=== PATIENT | male | born 1955 | race Caucasian/White ===

== ENCOUNTER 2023-03-25 16:12 | Inpatient (IN) | payer MEDICARE, OTHER ==
[~2023-03-25] VITALS: Ht 165.1 cm; Wt 61.2 kg
[2023-03-25] MEDS ORDERED: LINA290C PO (16:59)
[2023-03-25] MEDS ORDERED: BUPR-54 PO (16:59)
[2023-03-25] MEDS ORDERED: MULT-1201 PO (16:59)
[2023-03-25] MEDS ORDERED: MIRT-121 PO (16:59)
[2023-03-25] MEDS ORDERED: OLAN20TA3 PO (16:59)
[2023-03-25] MEDS ORDERED: LACT1CAP73 PO (16:59)
[2023-03-25] MEDS ORDERED: CHOL200059 PO (16:59)
[2023-03-25] MEDS ORDERED: VIT1CAPS9 PO (16:59)
[2023-03-25] MEDS ORDERED: LORA-258 PO (16:59)
[2023-03-25] MEDS ORDERED: SERT50TA PO (16:59)
[2023-03-25] MEDS ORDERED: MIDO5TAB4 PO (16:59)
[2023-03-25 17:54] VITALS: BP 136/69; TEMP 98.7; O2SAT 96
[2023-03-25] MEDS ORDERED: MIDODRINE HCL (5MG) 5 MG TABLET PO PRN (18:30)
[2023-03-25 19:07] LABS: BASOPHILS % (AUTO) 0.5 % (0.0-2.0); HEMATOCRIT 39 % (39-51); LYMPHOCYTES # (AUTO) 0.7 K/uL (0.8-4.8); MEAN CORPUSCULAR HEMOGLOBIN 30 PG (26.0-33.0); MEAN CORPUSCULAR HGB CONC 33 g/dl (31.0-36.0); MEAN CORPUSCULAR VOLUME 91 fL (80-96); MONOCYTES # (AUTO) 0.5 K/uL (0.1-1.30); MONOCYTES % (AUTO) 6.8 % (2.0-12.0); NEUTROPHILS # (AUTO) 5.5 K/uL (1.8-8.9); NEUTROPHILS % (AUTO) 81.7 % (43.0-81.0); PLATELET COUNT (AUTO) 167 K/uL (150-450); RED CELL DISTRIBUTION WIDTH 13.6 % (11.5-15.0); WHITE BLOOD COUNT (AUTO) 6.8 K/uL (4.3-11.0)
[2023-03-25 19:26] LABS: CALCIUM, SERUM 10.2 mg/dL (8.5-10.1); CREATININE 0.8 mg/dL (0.6-1.3); POTASSIUM 3.5 mmol/L (3.5-5.1)
[2023-03-25 19:31] LABS: BILIRUBIN,TOTAL 0.8 mg/dL (0.2-1.0)
[2023-03-25 19:48] LABS: LACTIC ACID 1.6 mmol/L (0.4-2.0)
[2023-03-25] MEDS ORDERED: MAGNESIUM HYDROXIDE 30 ML UDC PO PRN (20:00)
[2023-03-25] MEDS ORDERED: ACETAMINOPHEN 325 MG TABLET PO PRN (20:00)
[2023-03-25] MEDS ORDERED: ZOLPIDEM TARTRATE 5 MG TABLET PO PRN (20:00)
[2023-03-25] MEDS ORDERED: BLOOD SUGAR DIAGNOSTIC 1 EACH STRIP IN ONE (20:00)
[2023-03-25] MEDS ORDERED: LORAZEPAM 0.5 MG TABLET PO PRN (20:00)
[2023-03-25] MEDS ORDERED: MAG HYDROX/AL HYDROX/SIMETH 30 ML UDC PO PRN (20:00)
[2023-03-25 20:36] VITALS: BP 126/100; TEMP 100.9; O2SAT 94
[2023-03-26 08:00] VITALS: BP 118/59; TEMP 98.1; O2SAT 92
[2023-03-26] MEDS: DOCUSATE SODIUM 100 MG CAPSULE PO SCH ×2 (08:14→16:16)
[2023-03-26] MEDS ORDERED: POLYETHYLENE GLYCOL 3350 17 GM POWD.PACK PO SCH (09:00)
[2023-03-26] MEDS ORDERED: LORAZEPAM 0.5 MG TABLET PO PRN (10:30)
[2023-03-26] MEDS ORDERED: OLANZAPINE ZYDIS 5 MG TAB.RAPDIS PO SCH (10:30)
[2023-03-26] MEDS ORDERED: LORAZEPAM 1 MG TABLET PO PRN (11:00)
[2023-03-26] MEDS: ENSURE ENLIVE CHOC 237 ML CAN PO SCH ×2 (11:51→16:16)
[2023-03-26 15:13] LABS: CREATININE 0.8 mg/dL (0.6-1.3)
[2023-03-26 16:00] VITALS: BP 113/56; TEMP 97.9; O2SAT 96
[2023-03-26 20:35] VITALS: BP 130/68; TEMP 98.6; O2SAT 97
[2023-03-27] MEDS ORDERED: BUPROPION XL 150 MG TAB.ER.24 PO SCH (09:00)
== END 2023-03-26 20:20 | disposition short-term general hospital (02) | DRG 885 ==
LOC: GPS 16:12
PROVIDERS: ADMIT Psychiatry & Neurology Psychiatry; ATTEND Internal Medicine
DX: F33.3 Major depressive disorder, recurrent, severe with psychotic symptoms (principal); F29 Unspecified psychosis not due to a substance or known physiological condition; Z73.6 Limitation of activities due to disability; G31.84 Mild cognitive impairment of uncertain or unknown etiology; R62.7 Adult failure to thrive; F41.9 Anxiety disorder, unspecified
CPT/HCPCS: 36415; 76770-TC; 80053-TC; 80061-TC; 82565-TC; 83605-TC; 85025-TC; 87040-TC; 97110-TC; 97112-TC; 97530-TC; 97535-TC

== ENCOUNTER 2023-03-26 20:47 | Inpatient (IN) | payer MEDICARE, OTHER ==
[~2023-03-26] VITALS: Ht 170.2 cm; Wt 59.0 kg
[~2023-03-26 20:47] MED LIST: BUPR-54 PO; CHOL200059 PO; LACT1CAP73 PO; LINA290C PO; LORA-258 PO; MIDO5TAB4 PO; MIRT-121 PO; MULT-1201 PO; OLAN20TA3 PO; SERT50TA PO; VIT1CAPS9 PO
[2023-03-26 21:00] VITALS: BP 114/56; TEMP 97; O2SAT 98
[2023-03-26] MEDS ORDERED: ONDANSETRON HCL/PF 4 MG/2 ML VIAL IVP PRN (21:30)
[2023-03-26] MEDS ORDERED: MIDODRINE HCL (5MG) 5 MG TABLET PO PRN (21:30)
[2023-03-26] MEDS ORDERED: ZOLPIDEM TARTRATE 10 MG TABLET PO PRN (21:30)
[2023-03-26] MEDS ORDERED: MAGNESIUM HYDROXIDE 30 ML UDC PO PRN (21:30)
[2023-03-26] MEDS ORDERED: MAG HYDROX/AL HYDROX/SIMETH 30 ML UDC PO PRN (21:30)
[2023-03-26] MEDS ORDERED: ACETAMINOPHEN 325 MG TABLET PO PRN ×2 (21:30)
[2023-03-26] MEDS ORDERED: LORAZEPAM 1 MG TABLET PO PRN (21:30)
[2023-03-26] MEDS ORDERED: OLANZAPINE 10 MG TABLET PO SCH (22:00)
[2023-03-26] MEDS ORDERED: MIRTAZAPINE 15 MG TABLET PO SCH (22:00)
[2023-03-26] MEDS: IV D5/ 0.9% NACL 1,000 ML IV PRN (22:07)
[2023-03-27 06:00] VITALS: BP 125/62; TEMP 98.2
[2023-03-27 07:11] LABS: BASOPHILS # (AUTO) 0.1 K/uL (0.0-0.2); BASOPHILS % (AUTO) 0.9 % (0.0-2.0); EOSINOPHILS # (AUTO) 0.1 K/uL (0.0-0.7); HEMATOCRIT 37 % (39-51); HEMOGLOBIN 12.4 g/dL (13.5-17.5); LYMPHOCYTES # (AUTO) 1.1 K/uL (0.8-4.8); MEAN CORPUSCULAR HEMOGLOBIN 30 PG (26.0-33.0); MEAN CORPUSCULAR HGB CONC 33 g/dl (31.0-36.0); MEAN CORPUSCULAR VOLUME 90 fL (80-96); MONOCYTES # (AUTO) 0.5 K/uL (0.1-1.30); MONOCYTES % (AUTO) 8.1 % (2.0-12.0); NEUTROPHILS # (AUTO) 4.6 K/uL (1.8-8.9); PLATELET COUNT (AUTO) 195 K/uL (150-450); RED BLOOD CELL COUNT(AUTO) 4.13 MIL/uL (4.5-6.0); WHITE BLOOD COUNT (AUTO) 6.3 K/uL (4.3-11.0)
[2023-03-27 07:36] LABS: CREATININE 0.8 mg/dL (0.6-1.3); MAGNESIUM 2.1 mg/dL (1.8-2.4); PHOSPHORUS 2.2 mg/dL (2.5-4.9); POTASSIUM 3.5 mmol/L (3.5-5.1)
[2023-03-27] MEDS: ENSURE ENLIVE CHOC 237 ML CAN PO SCH ×4 (08:00→16:47)
[2023-03-27] MEDS: MULTIPLE VIT (LYCOPENE/FA/MV,CA,IRON,MIN/LUT)1 TAB PO SCH ×2 (08:07→08:58)
[2023-03-27] MEDS: BUPROPION XL 150 MG TAB.ER.24 PO SCH ×2 (08:07→08:59)
[2023-03-27] MEDS: LACTOBACILLUS RHAMNOSUS GG 1 EACH CAP.SPRINK PO SCH ×3 (08:07→16:47)
[2023-03-27] MEDS: DOCUSATE SODIUM 100 MG CAPSULE PO SCH ×3 (08:07→16:47)
[2023-03-27] MEDS: OLANZAPINE 5 MG TABLET PO SCH ×2 (08:07→08:59)
[2023-03-27] MEDS: LORAZEPAM 0.5 MG TABLET PO SCH ×2 (08:07→08:58)
[2023-03-27] MEDS: CHOLECALCIFEROL (VITAMIN D 3) 400 UNIT TABLET PO SCH ×2 (08:07→08:59)
[2023-03-27] MEDS: POLYETHYLENE GLYCOL 3350 17 GM POWD.PACK PO SCH ×2 (08:08→08:59)
[2023-03-27] MEDS: MIDODRINE HCL (5MG) 5 MG TABLET PO SCH ×2 (08:50→16:48)
[2023-03-27] MEDS ORDERED: BUPROPION XL 150 MG TAB.ER.24 PO SCH (09:00)
[2023-03-27] MEDS ORDERED: SERTRALINE HCL 50 MG TABLET PO SCH ×2 (09:00)
[2023-03-27] MEDS: ENOXAPARIN SODIUM 40 MG/0.4 ML DISP.SYRIN SQ SCH (09:43)
[2023-03-27] MEDS: OLANZAPINE 10 MG VIAL IM SCH ×2 (11:21→16:47)
[2023-03-27] MEDS: IV D5/ 0.9% NACL 1,000 ML IV PRN (11:30)
[2023-03-27] MEDS ORDERED: K PHOS NEUTRAL 250 MG TABLET PO ONE (15:30)
[2023-03-27 20:00] VITALS: BP 139/75; TEMP 97; O2SAT 99
[2023-03-27] MEDS ORDERED: OLANZAPINE 10 MG TABLET GT SCH (20:42)
[2023-03-27] MEDS ORDERED: LORAZEPAM 1 MG TABLET GT PRN (20:43)
[2023-03-27] MEDS ORDERED: MAG HYDROX/AL HYDROX/SIMETH 30 ML UDC GT PRN (20:43)
[2023-03-27] MEDS ORDERED: MAGNESIUM HYDROXIDE 30 ML UDC GT PRN (20:43)
[2023-03-27] MEDS ORDERED: ZOLPIDEM TARTRATE 10 MG TABLET GT PRN (20:43)
[2023-03-27] MEDS ORDERED: MIDODRINE HCL (5MG) 5 MG TABLET GT PRN (20:44)
[2023-03-27] MEDS ORDERED: NEUTRA PHOS 1 POWD.PACKET NG ONE (21:00)
[2023-03-27] MEDS ORDERED: NEUTRA PHOS 1 POWD.PACKET GT ONE (21:00)
[2023-03-27] MEDS ORDERED: TWOCAL HN 1,000 ML LIQUID GT PRN (21:00)
[2023-03-27] MEDS ORDERED: NEUTRA PHOS 1 POWD.PACKET PO ONE (21:00)
[2023-03-27] MEDS ORDERED: MIRTAZAPINE 15 MG TABLET PO SCH (22:00)
[2023-03-27] MEDS ORDERED: OLANZAPINE 10 MG TABLET PO SCH (22:00)
[2023-03-28] MEDS: IV D5/ 0.9% NACL 1,000 ML IV PRN (01:15)
[2023-03-28 04:00] VITALS: BP 105/65; TEMP 98.1; O2SAT 97
[2023-03-28] MEDS ORDERED: NEUTRA PHOS 1 POWD.PACKET NG ONE (08:00)
[2023-03-28] MEDS: BUPROPION XL 150 MG TAB.ER.24 PO SCH (08:05)
[2023-03-28] MEDS: POLYETHYLENE GLYCOL 3350 17 GM POWD.PACK GT SCH (08:06)
[2023-03-28] MEDS: CHOLECALCIFEROL (VITAMIN D 3) 400 UNIT TABLET GT SCH (08:06)
[2023-03-28] MEDS: MULTIPLE VIT (LYCOPENE/FA/MV,CA,IRON,MIN/LUT)1 TAB GT SCH (08:06)
[2023-03-28] MEDS: LORAZEPAM 0.5 MG TABLET GT SCH (08:06)
[2023-03-28] MEDS: DOCUSATE SODIUM LIQ 100 MG/10 ML UDC GT SCH ×2 (08:07→16:33)
[2023-03-28] MEDS: LACTOBACILLUS RHAMNOSUS GG 1 EACH CAP.SPRINK GT SCH ×2 (08:07→16:33)
[2023-03-28] MEDS: MIDODRINE HCL (5MG) 5 MG TABLET GT SCH ×2 (08:08→16:37)
[2023-03-28] MEDS: ENOXAPARIN SODIUM 40 MG/0.4 ML DISP.SYRIN SQ SCH (08:09)
[2023-03-28] MEDS: ENSURE ENLIVE CHOC 237 ML CAN PO SCH (08:09)
[2023-03-28] MEDS: OLANZAPINE 10 MG VIAL IM SCH (08:24)
[2023-03-28] MEDS: JEVITY 1.2 CAL 1,000 ML BOTTLE GT PRN (11:01)
[2023-03-28] MEDS: OLANZAPINE 10 MG TABLET GT SCH ×2 (14:27→16:33)
[2023-03-29] MEDS: IV D5/ 0.9% NACL 1,000 ML IV PRN ×2 (01:14→11:34)
[2023-03-29] MEDS: JEVITY 1.2 CAL 1,000 ML BOTTLE GT PRN (05:40)
[2023-03-29 05:55] LABS: BASOPHILS # (AUTO) 0.1 K/uL (0.0-0.2); BASOPHILS % (AUTO) 0.9 % (0.0-2.0); EOSINOPHILS % (AUTO) 0.6 % (0.0-6.0); HEMATOCRIT 35 % (39-51); HEMOGLOBIN 11.6 g/dL (13.5-17.5); LYMPHOCYTES % (AUTO) 14.1 % (20.0-44.0); MEAN CORPUSCULAR HEMOGLOBIN 30 PG (26.0-33.0); MEAN CORPUSCULAR HGB CONC 33 g/dl (31.0-36.0); MEAN CORPUSCULAR VOLUME 90 fL (80-96); MONOCYTES # (AUTO) 0.8 K/uL (0.1-1.30); MONOCYTES % (AUTO) 11.3 % (2.0-12.0); NEUTROPHILS # (AUTO) 5.2 K/uL (1.8-8.9); NEUTROPHILS % (AUTO) 73.1 % (43.0-81.0); PLATELET COUNT (AUTO) 237 K/uL (150-450); RED CELL DISTRIBUTION WIDTH 13.3 % (11.5-15.0); WHITE BLOOD COUNT (AUTO) 7.2 K/uL (4.3-11.0)
[2023-03-29 06:28] LABS: CREATININE 0.8 mg/dL (0.6-1.3); PHOSPHORUS 2.8 mg/dL (2.5-4.9); POTASSIUM 3.3 mmol/L (3.5-5.1)
[2023-03-29 08:00] VITALS: BP 107/61; TEMP 98.6; O2SAT 96
[2023-03-29] MEDS: LORAZEPAM 0.5 MG TABLET GT SCH (09:00)
[2023-03-29] MEDS: ENOXAPARIN SODIUM 40 MG/0.4 ML DISP.SYRIN SQ SCH ×2 (09:00→09:12)
[2023-03-29] MEDS: BUPROPION XL 150 MG TAB.ER.24 PO SCH (09:02)
[2023-03-29] MEDS: CHOLECALCIFEROL (VITAMIN D 3) 400 UNIT TABLET GT SCH (09:02)
[2023-03-29] MEDS: DOCUSATE SODIUM LIQ 100 MG/10 ML UDC GT SCH ×2 (09:02→17:22)
[2023-03-29] MEDS: OLANZAPINE 10 MG TABLET GT SCH ×3 (09:02→17:22)
[2023-03-29] MEDS: LACTOBACILLUS RHAMNOSUS GG 1 EACH CAP.SPRINK GT SCH ×2 (09:02→17:22)
[2023-03-29] MEDS: MULTIPLE VIT (LYCOPENE/FA/MV,CA,IRON,MIN/LUT)1 TAB GT SCH (09:02)
[2023-03-29] MEDS: MIDODRINE HCL (5MG) 5 MG TABLET GT SCH ×2 (09:03→17:22)
[2023-03-29] MEDS: POLYETHYLENE GLYCOL 3350 17 GM POWD.PACK GT SCH (09:03)
[2023-03-29] MEDS ORDERED: POTASSIUM CHLORIDE 20 MEQ POWDER PACKET NG SCH (10:30)
[2023-03-29 11:33] VITALS: BP 125/80; TEMP 98.9; O2SAT 96
[2023-03-29 15:51] LABS: APPEARANCE,URINE CLOUDY (CLEAR); BILIRUBIN,URINE NEGATIVE (NEGATIVE); BLOOD, URINE 1+ Ery/uL (NEGATIVE); COLOR,URINE YELLOW (YELLOW); KETONES,URINE TRACE mg/dL (NEGATIVE); LEUKOCYTE ESTERASE ,URINE NEGATIVE (NEGATIVE); NITRITE, URINE POSITIVE (NEGATIVE); PROTEIN,URINE NEGATIVE (NEGATIVE); UGLUCOSE NEGATIVE (NEGATIVE); UROBILINOGEN,URINE >=8.0 EU/dL (0.2)
[2023-03-29 16:00] VITALS: BP 122/69; TEMP 99; TEMP 99.1; O2SAT 94
[2023-03-29 16:10] LABS: ADD URINE CULTURE YES; BACTERIA,URINE 1+ /HPF (None Seen); RBC,URINE 0-2 /HPF (0-2); WBC,URINE NONE SEEN /HPF (0-3)
[2023-03-29 16:11] LABS: SQUAMOUS EPITHELIAL CELL,UR Few /HPF (None Seen); URINE AMORPHOUS URATE Moderate /HPF (None Seen)
[2023-03-29] MEDS ORDERED: CEFTRIAXONE 1 G VIAL IM SCH (16:30)
[2023-03-29] MEDS: ACETAMINOPHEN 650 MG/20.3 ML UDC GT PRN (17:22)
[2023-03-29 17:41] VITALS: TEMP 101.3
[2023-03-29] MEDS ORDERED: diphenhydrAMINE HCL 25 MG CAPSULE PO PRN (18:00)
[2023-03-29] MEDS: CEFTRIAXONE 1 G in IV D5W 50 ML IV SCH (18:05)
[2023-03-29 19:01] VITALS: TEMP 99.3
[2023-03-30] MEDS: JEVITY 1.2 CAL 1,000 ML BOTTLE GT PRN (03:12)
[2023-03-30 05:11] VITALS: BP 117/73; TEMP 98.4; O2SAT 98
[2023-03-30 07:40] LABS: BASOPHILS % (AUTO) 0.7 % (0.0-2.0); EOSINOPHILS # (AUTO) 0.1 K/uL (0.0-0.7); EOSINOPHILS % (AUTO) 1.2 % (0.0-6.0); HEMATOCRIT 36 % (39-51); HEMOGLOBIN 11.8 g/dL (13.5-17.5); MEAN CORPUSCULAR HEMOGLOBIN 30 PG (26.0-33.0); MEAN CORPUSCULAR HGB CONC 33 g/dl (31.0-36.0); MEAN CORPUSCULAR VOLUME 91 fL (80-96); MONOCYTES # (AUTO) 0.6 K/uL (0.1-1.30); MONOCYTES % (AUTO) 9.2 % (2.0-12.0); NEUTROPHILS # (AUTO) 5.1 K/uL (1.8-8.9); NEUTROPHILS % (AUTO) 74.9 % (43.0-81.0); PLATELET COUNT (AUTO) 249 K/uL (150-450); RED BLOOD CELL COUNT(AUTO) 3.95 MIL/uL (4.5-6.0); RED CELL DISTRIBUTION WIDTH 13.5 % (11.5-15.0); WHITE BLOOD COUNT (AUTO) 6.8 K/uL (4.3-11.0)
[2023-03-30 08:08] LABS: CREATININE 0.8 mg/dL (0.6-1.3); MAGNESIUM 2.1 mg/dL (1.8-2.4); PHOSPHORUS 3.8 mg/dL (2.5-4.9); POTASSIUM 3.8 mmol/L (3.5-5.1)
[2023-03-30] MEDS: MULTIPLE VIT (LYCOPENE/FA/MV,CA,IRON,MIN/LUT)1 TAB GT SCH (08:12)
[2023-03-30] MEDS: POLYETHYLENE GLYCOL 3350 17 GM POWD.PACK GT SCH (08:12)
[2023-03-30] MEDS: CHOLECALCIFEROL (VITAMIN D 3) 400 UNIT TABLET GT SCH (08:12)
[2023-03-30] MEDS: DOCUSATE SODIUM LIQ 100 MG/10 ML UDC GT SCH ×2 (08:12→16:07)
[2023-03-30] MEDS: LACTOBACILLUS RHAMNOSUS GG 1 EACH CAP.SPRINK GT SCH ×2 (08:12→16:08)
[2023-03-30] MEDS: LORAZEPAM 0.5 MG TABLET GT SCH (08:12)
[2023-03-30] MEDS: OLANZAPINE 10 MG TABLET GT SCH ×3 (08:12→16:07)
[2023-03-30] MEDS: BUPROPION XL 150 MG TAB.ER.24 PO SCH (08:12)
[2023-03-30] MEDS: ENOXAPARIN SODIUM 40 MG/0.4 ML DISP.SYRIN SQ SCH (08:14)
[2023-03-30 09:00] VITALS: BP 132/73; TEMP 98.4; O2SAT 98
[2023-03-30] MEDS: MIDODRINE HCL (5MG) 5 MG TABLET GT SCH ×2 (09:00→16:08)
[2023-03-30] MEDS ORDERED: AZITHROMYCIN 500 MG in IV D5W 250 ML IV SCH (14:00)
[2023-03-30 16:08] VITALS: BP 124/73; TEMP 98.6; O2SAT 98
[2023-03-30] MEDS: CEFTRIAXONE 1 G in IV D5W 50 ML IV SCH (17:00)
[2023-03-31] MEDS: JEVITY 1.2 CAL 1,000 ML BOTTLE GT PRN ×2 (00:45→18:20)
[2023-03-31 06:52] LABS: BASOPHILS % (AUTO) 0.3 % (0.0-2.0); EOSINOPHILS % (AUTO) 0.1 % (0.0-6.0); HEMATOCRIT 36 % (39-51); HEMOGLOBIN 11.9 g/dL (13.5-17.5); LYMPHOCYTES # (AUTO) 0.7 K/uL (0.8-4.8); LYMPHOCYTES % (AUTO) 6.2 % (20.0-44.0); MEAN CORPUSCULAR HEMOGLOBIN 30 PG (26.0-33.0); MEAN CORPUSCULAR HGB CONC 33 g/dl (31.0-36.0); MEAN CORPUSCULAR VOLUME 90 fL (80-96); MONOCYTES # (AUTO) 0.9 K/uL (0.1-1.30); MONOCYTES % (AUTO) 7.7 % (2.0-12.0); NEUTROPHILS # (AUTO) 10.2 K/uL (1.8-8.9); NEUTROPHILS % (AUTO) 85.7 % (43.0-81.0); PLATELET COUNT (AUTO) 288 K/uL (150-450); RED BLOOD CELL COUNT(AUTO) 3.98 MIL/uL (4.5-6.0); RED CELL DISTRIBUTION WIDTH 13.3 % (11.5-15.0); WHITE BLOOD COUNT (AUTO) 11.9 K/uL (4.3-11.0)
[2023-03-31 07:32] LABS: CALCIUM, SERUM 10.7 mg/dL (8.5-10.1); CREATININE 0.8 mg/dL (0.6-1.3); PHOSPHORUS 3.3 mg/dL (2.5-4.9); POTASSIUM 3.8 mmol/L (3.5-5.1)
[2023-03-31] MEDS: LACTOBACILLUS RHAMNOSUS GG 1 EACH CAP.SPRINK GT SCH ×2 (08:49→16:52)
[2023-03-31] MEDS: DOCUSATE SODIUM LIQ 100 MG/10 ML UDC GT SCH ×2 (08:49→16:51)
[2023-03-31] MEDS: OLANZAPINE 10 MG TABLET GT SCH ×3 (08:49→16:52)
[2023-03-31] MEDS: MULTIPLE VIT (LYCOPENE/FA/MV,CA,IRON,MIN/LUT)1 TAB GT SCH (08:49)
[2023-03-31] MEDS: LORAZEPAM 0.5 MG TABLET GT SCH (08:49)
[2023-03-31] MEDS: BUPROPION XL 150 MG TAB.ER.24 PO SCH (08:49)
[2023-03-31] MEDS: CHOLECALCIFEROL (VITAMIN D 3) 400 UNIT TABLET GT SCH (08:49)
[2023-03-31] MEDS: MIDODRINE HCL (5MG) 5 MG TABLET GT SCH ×2 (08:51→16:52)
[2023-03-31] MEDS: POLYETHYLENE GLYCOL 3350 17 GM POWD.PACK GT SCH (08:53)
[2023-03-31] MEDS: ENOXAPARIN SODIUM 40 MG/0.4 ML DISP.SYRIN SQ SCH (08:53)
[2023-03-31] MEDS: CEFEPIME 2 GM in IV D5W 100 ML IV SCH ×2 (12:52→20:59)
[2023-03-31 14:40] LABS: HIV-1 p24 ANTIGEN NON REACTIVE (NONREACTIVE); HIV-1/2 ANTIBODY NON REACTIVE (NONREACTIVE)
[2023-03-31 20:00] VITALS: BP 109/69; TEMP 98.6; O2SAT 97
[2023-04-01 04:00] VITALS: BP 114/72; TEMP 98; O2SAT 93
[2023-04-01] MEDS: CEFEPIME 2 GM in IV D5W 100 ML IV SCH ×3 (04:01→21:26)
[2023-04-01] MEDS: JEVITY 1.2 CAL 1,000 ML BOTTLE GT PRN ×2 (07:07→17:46)
[2023-04-01] MEDS: POLYETHYLENE GLYCOL 3350 17 GM POWD.PACK GT SCH (08:44)
[2023-04-01] MEDS: MULTIPLE VIT (LYCOPENE/FA/MV,CA,IRON,MIN/LUT)1 TAB GT SCH (08:44)
[2023-04-01] MEDS: OLANZAPINE 10 MG TABLET GT SCH ×2 (08:44→16:56)
[2023-04-01] MEDS: BUPROPION XL 150 MG TAB.ER.24 PO SCH (08:44)
[2023-04-01] MEDS: LACTOBACILLUS RHAMNOSUS GG 1 EACH CAP.SPRINK GT SCH ×2 (08:44→16:56)
[2023-04-01] MEDS: DOCUSATE SODIUM LIQ 100 MG/10 ML UDC GT SCH ×2 (08:44→16:56)
[2023-04-01] MEDS: CHOLECALCIFEROL (VITAMIN D 3) 400 UNIT TABLET GT SCH (08:44)
[2023-04-01] MEDS: MIDODRINE HCL (5MG) 5 MG TABLET GT SCH ×2 (08:47→16:56)
[2023-04-01] MEDS: ENOXAPARIN SODIUM 40 MG/0.4 ML DISP.SYRIN SQ SCH (08:49)
[2023-04-01 14:35] LABS: HIV-1 p24 ANTIGEN NON REACTIVE (NONREACTIVE); HIV-1/2 ANTIBODY NON REACTIVE (NONREACTIVE)
[2023-04-02] MEDS ORDERED: ACETAMINOPHEN 650 MG/SUPP.RECT RC PRN (04:00)
[2023-04-02] MEDS: CEFEPIME 2 GM in IV D5W 100 ML IV SCH ×3 (04:23→21:37)
[2023-04-02 05:56] LABS: BASOPHILS % (AUTO) 0.3 % (0.0-2.0); EOSINOPHILS % (AUTO) 0.1 % (0.0-6.0); HEMATOCRIT 36 % (39-51); HEMOGLOBIN 11.8 g/dL (13.5-17.5); LYMPHOCYTES # (AUTO) 0.9 K/uL (0.8-4.8); LYMPHOCYTES % (AUTO) 5.3 % (20.0-44.0); MEAN CORPUSCULAR HEMOGLOBIN 29 PG (26.0-33.0); MEAN CORPUSCULAR HGB CONC 33 g/dl (31.0-36.0); MEAN CORPUSCULAR VOLUME 90 fL (80-96); MONOCYTES # (AUTO) 0.7 K/uL (0.1-1.30); MONOCYTES % (AUTO) 4.7 % (2.0-12.0); NEUTROPHILS # (AUTO) 14.4 K/uL (1.8-8.9); NEUTROPHILS % (AUTO) 89.6 % (43.0-81.0); PLATELET COUNT (AUTO) 341 K/uL (150-450); RED BLOOD CELL COUNT(AUTO) 4.02 MIL/uL (4.5-6.0); RED CELL DISTRIBUTION WIDTH 13.2 % (11.5-15.0)
[2023-04-02 06:13] LABS: CALCIUM, SERUM 10.4 mg/dL (8.5-10.1); CREATININE 1.1 mg/dL (0.6-1.3); POTASSIUM 4.5 mmol/L (3.5-5.1)
[2023-04-02 08:00] VITALS: BP 107/66; TEMP 99.7; O2SAT 96
[2023-04-02] MEDS: MIDODRINE HCL (5MG) 5 MG TABLET GT SCH ×2 (10:01→16:14)
[2023-04-02] MEDS: MULTIPLE VIT (LYCOPENE/FA/MV,CA,IRON,MIN/LUT)1 TAB GT SCH (10:02)
[2023-04-02] MEDS: BUPROPION XL 150 MG TAB.ER.24 PO SCH (10:02)
[2023-04-02] MEDS: CHOLECALCIFEROL (VITAMIN D 3) 400 UNIT TABLET GT SCH (10:02)
[2023-04-02] MEDS: LACTOBACILLUS RHAMNOSUS GG 1 EACH CAP.SPRINK GT SCH ×2 (10:02→16:13)
[2023-04-02] MEDS: DOCUSATE SODIUM LIQ 100 MG/10 ML UDC GT SCH ×2 (10:02→16:13)
[2023-04-02] MEDS: POLYETHYLENE GLYCOL 3350 17 GM POWD.PACK GT SCH (10:02)
[2023-04-02] MEDS: OLANZAPINE 10 MG TABLET GT SCH ×2 (10:02→16:13)
[2023-04-02] MEDS: ENOXAPARIN SODIUM 40 MG/0.4 ML DISP.SYRIN SQ SCH (10:04)
[2023-04-02 16:00] VITALS: BP 103/62; TEMP 99.3; O2SAT 98
[2023-04-02] MEDS: ACETAMINOPHEN 650 MG/20.3 ML UDC GT PRN (16:13)
[2023-04-02] MEDS: buPROPion 100 MG TABLET GT SCH (16:13)
[2023-04-02] MEDS: JEVITY 1.2 CAL 1,000 ML BOTTLE GT PRN (23:30)
[2023-04-03] MEDS: CEFEPIME 2 GM in IV D5W 100 ML IV SCH ×3 (05:50→20:58)
[2023-04-03 08:00] VITALS: BP 142/68; TEMP 99.3; O2SAT 96
[2023-04-03 08:28] LABS: ALBUMIN 2.4 g/dL (3.4-5.0); BILIRUBIN,DIRECT 0.1 mg/dL (0.0-0.2); BILIRUBIN,TOTAL 0.3 mg/dL (0.2-1.0); TOTAL PROTEIN, SERUM 7.2 g/dL (6.4-8.2)
[2023-04-03] MEDS: MIDODRINE HCL (5MG) 5 MG TABLET GT SCH ×2 (09:00→17:08)
[2023-04-03] MEDS: ENOXAPARIN SODIUM 40 MG/0.4 ML DISP.SYRIN SQ SCH (09:28)
[2023-04-03] MEDS: POLYETHYLENE GLYCOL 3350 17 GM POWD.PACK GT SCH (09:28)
[2023-04-03] MEDS: DOCUSATE SODIUM LIQ 100 MG/10 ML UDC GT SCH ×2 (09:29→17:07)
[2023-04-03] MEDS: OLANZAPINE 10 MG TABLET GT SCH ×2 (09:29→17:08)
[2023-04-03] MEDS: CHOLECALCIFEROL (VITAMIN D 3) 400 UNIT TABLET GT SCH (09:30)
[2023-04-03] MEDS: buPROPion 100 MG TABLET GT SCH ×2 (09:30→17:08)
[2023-04-03] MEDS: MULTIPLE VIT (LYCOPENE/FA/MV,CA,IRON,MIN/LUT)1 TAB GT SCH (09:30)
[2023-04-03] MEDS: LACTOBACILLUS RHAMNOSUS GG 1 EACH CAP.SPRINK GT SCH ×2 (09:30→17:08)
[2023-04-03] MEDS: DOXYCYCLINE HYCLATE (100 MG) 100 MG TABLET PO SCH ×2 (09:30→21:34)
[2023-04-03 16:00] VITALS: BP 116/73; TEMP 98.3; O2SAT 95
[2023-04-03] MEDS: JEVITY 1.2 CAL 1,000 ML BOTTLE GT PRN (18:05)
[2023-04-04] MEDS: CEFEPIME 2 GM in IV D5W 100 ML IV SCH ×3 (04:22→21:17)
[2023-04-04 05:47] LABS: BASOPHILS # (AUTO) 0.1 K/uL (0.0-0.2); BASOPHILS % (AUTO) 0.5 % (0.0-2.0); EOSINOPHILS % (AUTO) 0.1 % (0.0-6.0); HEMATOCRIT 34 % (39-51); HEMOGLOBIN 11.2 g/dL (13.5-17.5); LYMPHOCYTES # (AUTO) 0.8 K/uL (0.8-4.8); MEAN CORPUSCULAR HEMOGLOBIN 30 PG (26.0-33.0); MEAN CORPUSCULAR HGB CONC 33 g/dl (31.0-36.0); MEAN CORPUSCULAR VOLUME 90 fL (80-96); MONOCYTES # (AUTO) 1.2 K/uL (0.1-1.30); MONOCYTES % (AUTO) 6.5 % (2.0-12.0); NEUTROPHILS # (AUTO) 17.1 K/uL (1.8-8.9); NEUTROPHILS % (AUTO) 88.9 % (43.0-81.0); PLATELET COUNT (AUTO) 363 K/uL (150-450); WHITE BLOOD COUNT (AUTO) 19.2 K/uL (4.3-11.0)
[2023-04-04 06:03] LABS: ALBUMIN 2.3 g/dL (3.4-5.0); BILIRUBIN,TOTAL 0.3 mg/dL (0.2-1.0); CALCIUM, SERUM 11.1 mg/dL (8.5-10.1); CREATININE 1.1 mg/dL (0.6-1.3); MAGNESIUM 2.9 mg/dL (1.8-2.4); PHOSPHORUS 2.6 mg/dL (2.5-4.9); POTASSIUM 4.3 mmol/L (3.5-5.1); TOTAL PROTEIN, SERUM 7.4 g/dL (6.4-8.2)
[2023-04-04] MEDS: OLANZAPINE 10 MG TABLET GT SCH ×2 (09:36→21:06)
[2023-04-04] MEDS: DOXYCYCLINE HYCLATE (100 MG) 100 MG TABLET PO SCH (09:36)
[2023-04-04] MEDS: MULTIPLE VIT (LYCOPENE/FA/MV,CA,IRON,MIN/LUT)1 TAB GT SCH (09:36)
[2023-04-04] MEDS: POLYETHYLENE GLYCOL 3350 17 GM POWD.PACK GT SCH (09:36)
[2023-04-04] MEDS: DOCUSATE SODIUM LIQ 100 MG/10 ML UDC GT SCH ×2 (09:36→17:08)
[2023-04-04] MEDS: buPROPion 100 MG TABLET GT SCH ×2 (09:37→17:09)
[2023-04-04] MEDS: CHOLECALCIFEROL (VITAMIN D 3) 400 UNIT TABLET GT SCH (09:37)
[2023-04-04] MEDS: LACTOBACILLUS RHAMNOSUS GG 1 EACH CAP.SPRINK GT SCH ×2 (09:37→17:09)
[2023-04-04] MEDS: MIDODRINE HCL (5MG) 5 MG TABLET GT SCH ×2 (09:37→17:09)
[2023-04-04] MEDS: ENOXAPARIN SODIUM 40 MG/0.4 ML DISP.SYRIN SQ SCH (09:40)
[2023-04-04] MEDS: JEVITY 1.2 CAL 1,000 ML BOTTLE GT PRN (10:38)
[2023-04-04] MEDS: IV NS 0.9% 250 ML IV PRN (10:49)
[2023-04-04] MEDS ORDERED: DOXYCYCLINE HYCLATE (100 MG) 100 MG TABLET GT SCH (12:47)
[2023-04-04] MEDS ORDERED: VANCOMYCIN 1 GM in IV D5W 250ml IV ONE (15:00)
[2023-04-04 16:00] VITALS: BP 115/74; TEMP 98.4; O2SAT 94
[2023-04-04 20:00] VITALS: BP 119/73; TEMP 98.7; O2SAT 95
[2023-04-04 20:48] LABS: ABG BASE EXCESS 7.8 mmol/L; ABG OXYGEN SATURATION 99.1 % (92.0-98.5); ABG PCO2 42.3 mmHg (35.0-45.0); ABG PH 7.495 (7.350-7.450); ABG PO2 210.5 mmHg (75.0-100.0); ABG TOTAL HEMOGLOBIN 12.9 G/dL (13.5-18.0); AaDO2 460.2 mmHg; COHb 0.3 % (0.5-1.5); MetHb 0.2 % (0.0-1.5); O2Hb 98.6 % (94.0-97.0); SITE, ABG Right Radial; VENT MODE, BG Non rebreather
[2023-04-04] MEDS: VANCOMYCIN 500 MG in IV D5W 100ml IV SCH (23:16)
[2023-04-05 04:00] VITALS: BP 117/72; TEMP 98.7; O2SAT 95
[2023-04-05] MEDS: CEFEPIME 2 GM in IV D5W 100 ML IV SCH ×3 (04:56→21:40)
[2023-04-05 06:05] LABS: BASOPHILS # (AUTO) 0.1 K/uL (0.0-0.2); BASOPHILS % (AUTO) 0.5 % (0.0-2.0); EOSINOPHILS # (AUTO) 0.1 K/uL (0.0-0.7); EOSINOPHILS % (AUTO) 0.7 % (0.0-6.0); HEMATOCRIT 36 % (39-51); HEMOGLOBIN 11.4 g/dL (13.5-17.5); LYMPHOCYTES # (AUTO) 1.1 K/uL (0.8-4.8); LYMPHOCYTES % (AUTO) 6.9 % (20.0-44.0); MEAN CORPUSCULAR HEMOGLOBIN 29 PG (26.0-33.0); MEAN CORPUSCULAR HGB CONC 32 g/dl (31.0-36.0); MEAN CORPUSCULAR VOLUME 90 fL (80-96); MONOCYTES % (AUTO) 6.1 % (2.0-12.0); NEUTROPHILS # (AUTO) 13.4 K/uL (1.8-8.9); NEUTROPHILS % (AUTO) 85.8 % (43.0-81.0); PLATELET COUNT (AUTO) 401 K/uL (150-450); RED BLOOD CELL COUNT(AUTO) 3.93 MIL/uL (4.5-6.0); RED CELL DISTRIBUTION WIDTH 13.2 % (11.5-15.0); WHITE BLOOD COUNT (AUTO) 15.6 K/uL (4.3-11.0)
[2023-04-05 06:23] LABS: CALCIUM, SERUM 11.1 mg/dL (8.5-10.1); CREATININE 0.9 mg/dL (0.6-1.3)
[2023-04-05] MEDS: VANCOMYCIN 500 MG in IV D5W 100ml IV SCH ×3 (07:29→23:50)
[2023-04-05 08:00] VITALS: BP 107/73; TEMP 98.7; O2SAT 94
[2023-04-05] MEDS: DOCUSATE SODIUM LIQ 100 MG/10 ML UDC GT SCH ×2 (09:00→16:09)
[2023-04-05] MEDS: OLANZAPINE 10 MG TABLET GT SCH ×2 (09:00→21:25)
[2023-04-05] MEDS: MULTIPLE VIT (LYCOPENE/FA/MV,CA,IRON,MIN/LUT)1 TAB GT SCH (09:00)
[2023-04-05] MEDS: ENOXAPARIN SODIUM 40 MG/0.4 ML DISP.SYRIN SQ SCH (09:00)
[2023-04-05] MEDS: buPROPion 100 MG TABLET GT SCH ×2 (09:00→16:09)
[2023-04-05] MEDS: LACTOBACILLUS RHAMNOSUS GG 1 EACH CAP.SPRINK GT SCH ×2 (09:00→16:09)
[2023-04-05] MEDS: POLYETHYLENE GLYCOL 3350 17 GM POWD.PACK GT SCH (09:00)
[2023-04-05] MEDS: CHOLECALCIFEROL (VITAMIN D 3) 400 UNIT TABLET GT SCH (09:00)
[2023-04-05] MEDS: MIDODRINE HCL (5MG) 5 MG TABLET GT SCH ×2 (09:00→16:09)
[2023-04-05] MEDS ORDERED: MIDAZOLAM HCL 2 MG/2ML VIAL ONE (12:07)
[2023-04-05 16:00] VITALS: BP 111/66; TEMP 98.7; O2SAT 94
[2023-04-05] MEDS ORDERED: ALBUTEROL FS 2.5 MG/3 ML VIAL.NEB NEB PRN (16:00)
[2023-04-05] MEDS ORDERED: IPRATROPIUM NEB FS 0.5 MG/2.5 ML AMPUL.NEB NEB PRN (16:00)
[2023-04-05 20:00] VITALS: BP 102/64; TEMP 98.2; O2SAT 96
[2023-04-06 04:00] VITALS: BP 107/68; TEMP 98.2; O2SAT 95
[2023-04-06] MEDS: CEFEPIME 2 GM in IV D5W 100 ML IV SCH ×3 (05:21→20:11)
[2023-04-06] MEDS: IV NS 0.9% 250 ML IV PRN (05:30)
[2023-04-06] MEDS: GLUCERNA 1.2 1,000 ML BOTTLE NG PRN (06:13)
[2023-04-06 07:26] LABS: CALCIUM, SERUM 10.7 mg/dL (8.5-10.1)
[2023-04-06] MEDS: VANCOMYCIN 500 MG in IV D5W 100ml IV SCH ×3 (07:52→22:26)
[2023-04-06 08:00] VITALS: BP 126/71; TEMP 95.6; O2SAT 92
[2023-04-06] MEDS: DOCUSATE SODIUM LIQ 100 MG/10 ML UDC GT SCH ×2 (08:47→17:20)
[2023-04-06] MEDS: ENOXAPARIN SODIUM 40 MG/0.4 ML DISP.SYRIN SQ SCH (08:47)
[2023-04-06] MEDS: buPROPion 100 MG TABLET GT SCH ×2 (08:48→17:20)
[2023-04-06] MEDS: MULTIPLE VIT (LYCOPENE/FA/MV,CA,IRON,MIN/LUT)1 TAB GT SCH (08:48)
[2023-04-06] MEDS: MIDODRINE HCL (5MG) 5 MG TABLET GT SCH ×2 (08:48→17:22)
[2023-04-06] MEDS: CHOLECALCIFEROL (VITAMIN D 3) 400 UNIT TABLET GT SCH (08:48)
[2023-04-06] MEDS: POLYETHYLENE GLYCOL 3350 17 GM POWD.PACK GT SCH (08:48)
[2023-04-06] MEDS: OLANZAPINE 10 MG TABLET GT SCH (08:48)
[2023-04-06] MEDS: LACTOBACILLUS RHAMNOSUS GG 1 EACH CAP.SPRINK GT SCH ×2 (08:48→17:20)
[2023-04-06 16:00] VITALS: BP 118/68; TEMP 98.2; O2SAT 91
[2023-04-06 20:00] VITALS: BP 117/69; TEMP 98.3; O2SAT 97
[2023-04-06] MEDS: OLANZAPINE 2.5 MG TABLET GT SCH (22:24)
[2023-04-07] VITALS (25 sets, daily range): BP systolic 95–130; BP diastolic 49–97; TEMP 98.2–101.5; O2SAT 94–100
[2023-04-07] MEDS: CEFEPIME 2 GM in IV D5W 100 ML IV SCH ×3 (04:47→21:09)
[2023-04-07] MEDS: GLUCERNA 1.2 1,000 ML BOTTLE NG PRN ×2 (04:48→22:16)
[2023-04-07 05:41] LABS: BASOPHILS # (AUTO) 0.1 K/uL (0.0-0.2); BASOPHILS % (AUTO) 0.7 % (0.0-2.0); EOSINOPHILS % (AUTO) 0.2 % (0.0-6.0); HEMATOCRIT 37 % (39-51); HEMOGLOBIN 12.1 g/dL (13.5-17.5); LYMPHOCYTES # (AUTO) 0.6 K/uL (0.8-4.8); MEAN CORPUSCULAR HEMOGLOBIN 30 PG (26.0-33.0); MEAN CORPUSCULAR HGB CONC 33 g/dl (31.0-36.0); MEAN CORPUSCULAR VOLUME 90 fL (80-96); NEUTROPHILS # (AUTO) 18.5 K/uL (1.8-8.9); NEUTROPHILS % (AUTO) 91.1 % (43.0-81.0); PLATELET COUNT (AUTO) 439 K/uL (150-450); RED BLOOD CELL COUNT(AUTO) 4.07 MIL/uL (4.5-6.0); RED CELL DISTRIBUTION WIDTH 13.3 % (11.5-15.0); WHITE BLOOD COUNT (AUTO) 20.3 K/uL (4.3-11.0)
[2023-04-07 06:00] LABS: CALCIUM, SERUM 10.6 mg/dL (8.5-10.1); CREATININE 1.1 mg/dL (0.6-1.3); MAGNESIUM 2.8 mg/dL (1.8-2.4); PHOSPHORUS 2.2 mg/dL (2.5-4.9); POTASSIUM 3.8 mmol/L (3.5-5.1)
[2023-04-07] MEDS: VANCOMYCIN 500 MG in IV D5W 100ml IV SCH ×2 (07:12→15:28)
[2023-04-07 09:03] LABS: EOSINOPHILS % (MANUAL) 1 % (0-4); LYMPHOCYTES % (MANUAL) 4 % (16-48); MONOCYTES % (MANUAL) 2 % (0-11.0); MYELOCYTES % 1 % (0-0); NEUTROPHILS % (MANUAL) 92 (42-76); PLATELET ESTIMATE ADEQUATE
[2023-04-07] MEDS: LACTOBACILLUS RHAMNOSUS GG 1 EACH CAP.SPRINK GT SCH ×2 (09:04→17:12)
[2023-04-07] MEDS: CHOLECALCIFEROL (VITAMIN D 3) 400 UNIT TABLET GT SCH (09:05)
[2023-04-07] MEDS: buPROPion 100 MG TABLET GT SCH ×2 (09:05→17:00)
[2023-04-07] MEDS: POLYETHYLENE GLYCOL 3350 17 GM POWD.PACK GT SCH (09:06)
[2023-04-07] MEDS: DOCUSATE SODIUM LIQ 100 MG/10 ML UDC GT SCH ×2 (09:06→17:13)
[2023-04-07] MEDS: OLANZAPINE 10 MG TABLET GT SCH (09:06)
[2023-04-07] MEDS: MULTIPLE VIT (LYCOPENE/FA/MV,CA,IRON,MIN/LUT)1 TAB GT SCH (09:06)
[2023-04-07] MEDS: MIDODRINE HCL (5MG) 5 MG TABLET GT SCH ×2 (09:10→17:13)
[2023-04-07] MEDS: ENOXAPARIN SODIUM 40 MG/0.4 ML DISP.SYRIN SQ SCH (09:12)
[2023-04-07 12:52] LABS: ABG BASE EXCESS 4.6 mmol/L; ABG OXYGEN SATURATION 91.4 % (92.0-98.5); ABG PCO2 40.7 mmHg (35.0-45.0); ABG PH 7.466 (7.350-7.450); ABG PO2 59.8 mmHg (75.0-100.0); ABG TOTAL HEMOGLOBIN 13.8 G/dL (13.5-18.0); AaDO2 612.5 mmHg; COHb 0.2 % (0.5-1.5); MetHb 0.2 % (0.0-1.5); SITE, ABG Left Radial
[2023-04-07] MEDS: METRONIDAZOLE 500MG/ NS 100ML 500 MG in PREMIX 1 EA IV SCH ×2 (13:59→21:09)
[2023-04-07] MEDS: IV NS 0.9% 250 ML IV PRN (15:11)
[2023-04-07 15:12] LABS: ABG BASE EXCESS 4.7 mmol/L; ABG OXYGEN SATURATION 95.7 % (92.0-98.5); ABG PCO2 37.6 mmHg (35.0-45.0); ABG PH 7.492 (7.350-7.450); ABG PO2 74.6 mmHg (75.0-100.0); ABG TOTAL HEMOGLOBIN 14.2 G/dL (13.5-18.0); AaDO2 600.8 mmHg; COHb 0.1 % (0.5-1.5); MetHb 0.2 % (0.0-1.5); O2Hb 95.4 % (94.0-97.0); SITE, ABG Right Radial; VENT MODE, BG HFNC 40L/100%
[2023-04-07] MEDS ORDERED: IV NS 0.9% 250 ML IV PRN (15:30)
[2023-04-07] MEDS: ACETAMINOPHEN 650 MG/20.3 ML UDC GT PRN (15:47)
[2023-04-07] MEDS ORDERED: NEUTRA PHOS 1 POWD.PACKET NG ONE (16:00)
[2023-04-07] MEDS: OLANZAPINE 2.5 MG TABLET GT SCH (22:17)
[2023-04-08] VITALS (33 sets, daily range): BP systolic 91–149; BP diastolic 51–87; TEMP 98–98.5; O2SAT 93–100
[2023-04-08] MEDS: IV NS 0.9% 250 ML IV PRN (02:21)
[2023-04-08] MEDS: VANCOMYCIN HCL 0.75 GM in IV D5W 250 ML IV SCH ×2 (02:24→15:33)
[2023-04-08 04:17] LABS: BASOPHILS # (AUTO) 0.4 K/uL (0.0-0.2); BASOPHILS % (AUTO) 1.2 % (0.0-2.0); HEMATOCRIT 33 % (39-51); HEMOGLOBIN 10.6 g/dL (13.5-17.5); LYMPHOCYTES # (AUTO) 1.3 K/uL (0.8-4.8); LYMPHOCYTES % (AUTO) 4.3 % (20.0-44.0); MEAN CORPUSCULAR HEMOGLOBIN 29 PG (26.0-33.0); MEAN CORPUSCULAR HGB CONC 32 g/dl (31.0-36.0); MEAN CORPUSCULAR VOLUME 90 fL (80-96); MONOCYTES # (AUTO) 1.2 K/uL (0.1-1.30); MONOCYTES % (AUTO) 3.9 % (2.0-12.0); NEUTROPHILS # (AUTO) 27.4 K/uL (1.8-8.9); NEUTROPHILS % (AUTO) 90.6 % (43.0-81.0); PLATELET COUNT (AUTO) 384 K/uL (150-450); RED BLOOD CELL COUNT(AUTO) 3.66 MIL/uL (4.5-6.0); RED CELL DISTRIBUTION WIDTH 13.5 % (11.5-15.0)
[2023-04-08 04:25] LABS: WHITE BLOOD COUNT (AUTO) 30.3 K/uL (4.3-11.0)
[2023-04-08 04:49] LABS: CALCIUM, SERUM 10.6 mg/dL (8.5-10.1); CREATININE 1.1 mg/dL (0.6-1.3); MAGNESIUM 2.8 mg/dL (1.8-2.4); PHOSPHORUS 2.7 mg/dL (2.5-4.9); POTASSIUM 3.9 mmol/L (3.5-5.1)
[2023-04-08 05:11] LABS: LYMPHOCYTES % (MANUAL) 3 % (16-48); MONOCYTES % (MANUAL) 8 % (0-11.0); NEUTROPHILS % (MANUAL) 89 (42-76); PLATELET ESTIMATE ADEQUATE
[2023-04-08] MEDS: CEFEPIME 2 GM in IV D5W 100 ML IV SCH (05:17)
[2023-04-08] MEDS: METRONIDAZOLE 500MG/ NS 100ML 500 MG in PREMIX 1 EA IV SCH (05:17)
[2023-04-08] MEDS: MEROPENEM 1 G in IV NS 0.9% 100 ML IV SCH ×3 (08:09→21:23)
[2023-04-08] MEDS: ENOXAPARIN SODIUM 40 MG/0.4 ML DISP.SYRIN SQ SCH (08:37)
[2023-04-08] MEDS: POLYETHYLENE GLYCOL 3350 17 GM POWD.PACK GT SCH (08:37)
[2023-04-08] MEDS: OLANZAPINE 10 MG TABLET GT SCH (08:37)
[2023-04-08] MEDS: DOCUSATE SODIUM LIQ 100 MG/10 ML UDC GT SCH ×2 (08:37→16:23)
[2023-04-08] MEDS: MIDODRINE HCL (5MG) 5 MG TABLET GT SCH ×2 (08:37→16:23)
[2023-04-08] MEDS: CHOLECALCIFEROL (VITAMIN D 3) 400 UNIT TABLET GT SCH (08:38)
[2023-04-08] MEDS: buPROPion 100 MG TABLET GT SCH ×2 (08:38→16:26)
[2023-04-08] MEDS: LACTOBACILLUS RHAMNOSUS GG 1 EACH CAP.SPRINK GT SCH ×2 (08:38→16:23)
[2023-04-08] MEDS: MULTIPLE VIT (LYCOPENE/FA/MV,CA,IRON,MIN/LUT)1 TAB GT SCH (08:58)
[2023-04-08] MEDS ORDERED: IV D5/ 0.9% NACL 1,000 ML IV PRN (10:00)
[2023-04-08] MEDS: GLUCERNA 1.2 1,000 ML BOTTLE NG PRN (13:43)
[2023-04-08] MEDS: OLANZAPINE 2.5 MG TABLET GT SCH (22:01)
[2023-04-09] VITALS (29 sets, daily range): BP systolic 98–130; BP diastolic 52–88; TEMP 98.3–98.9; O2SAT 94–100
[2023-04-09] MEDS: VANCOMYCIN HCL 0.75 GM in IV D5W 250 ML IV SCH ×2 (03:01→16:23)
[2023-04-09] MEDS: MEROPENEM 1 G in IV NS 0.9% 100 ML IV SCH ×3 (04:35→21:03)
[2023-04-09 04:36] LABS: BASOPHILS # (AUTO) 0.1 K/uL (0.0-0.2); BASOPHILS % (AUTO) 0.5 % (0.0-2.0); EOSINOPHILS # (AUTO) 0.1 K/uL (0.0-0.7); EOSINOPHILS % (AUTO) 0.5 % (0.0-6.0); HEMATOCRIT 33 % (39-51); HEMOGLOBIN 10.4 g/dL (13.5-17.5); LYMPHOCYTES # (AUTO) 1.2 K/uL (0.8-4.8); LYMPHOCYTES % (AUTO) 5.8 % (20.0-44.0); MEAN CORPUSCULAR HEMOGLOBIN 29 PG (26.0-33.0); MEAN CORPUSCULAR HGB CONC 32 g/dl (31.0-36.0); MEAN CORPUSCULAR VOLUME 91 fL (80-96); NEUTROPHILS # (AUTO) 18.2 K/uL (1.8-8.9); NEUTROPHILS % (AUTO) 88.2 % (43.0-81.0); PLATELET COUNT (AUTO) 374 K/uL (150-450); RED BLOOD CELL COUNT(AUTO) 3.57 MIL/uL (4.5-6.0); RED CELL DISTRIBUTION WIDTH 13.5 % (11.5-15.0); WHITE BLOOD COUNT (AUTO) 20.6 K/uL (4.3-11.0)
[2023-04-09 04:54] LABS: CALCIUM, SERUM 10.8 mg/dL (8.5-10.1); MAGNESIUM 3.1 mg/dL (1.8-2.4); PHOSPHORUS 3.1 mg/dL (2.5-4.9)
[2023-04-09] MEDS: IV NS 0.9% 250 ML IV PRN (05:00)
[2023-04-09 06:47] LABS: LYMPHOCYTES % (MANUAL) 8 % (16-48); MONOCYTES % (MANUAL) 2 % (0-11.0); MYELOCYTES % 1 % (0-0); NEUTROPHILS % (MANUAL) 89 (42-76); PLATELET ESTIMATE ADEQUATE
[2023-04-09] MEDS: DOCUSATE SODIUM LIQ 100 MG/10 ML UDC GT SCH ×2 (08:07→16:33)
[2023-04-09] MEDS: LACTOBACILLUS RHAMNOSUS GG 1 EACH CAP.SPRINK GT SCH ×2 (08:07→16:33)
[2023-04-09] MEDS: POLYETHYLENE GLYCOL 3350 17 GM POWD.PACK GT SCH (08:07)
[2023-04-09] MEDS: OLANZAPINE 10 MG TABLET GT SCH (08:07)
[2023-04-09] MEDS: CHOLECALCIFEROL (VITAMIN D 3) 400 UNIT TABLET GT SCH (08:07)
[2023-04-09] MEDS: MIDODRINE HCL (5MG) 5 MG TABLET GT SCH ×2 (08:08→16:32)
[2023-04-09] MEDS: ENOXAPARIN SODIUM 40 MG/0.4 ML DISP.SYRIN SQ SCH (08:08)
[2023-04-09] MEDS: MULTIPLE VIT (LYCOPENE/FA/MV,CA,IRON,MIN/LUT)1 TAB GT SCH (08:14)
[2023-04-09] MEDS: buPROPion 100 MG TABLET GT SCH ×2 (08:14→16:33)
[2023-04-09] MEDS: GLUCERNA 1.2 1,000 ML BOTTLE NG PRN (10:11)
[2023-04-09] MEDS: OLANZAPINE 2.5 MG TABLET GT SCH (21:28)
[2023-04-10] VITALS (24 sets, daily range): BP systolic 96–132; BP diastolic 51–90; TEMP 98.4–98.9; O2SAT 86–100
[2023-04-10] MEDS: IV NS 0.9% 250 ML IV PRN (02:58)
[2023-04-10] MEDS ORDERED: VANCOMYCIN 500 MG in IV D5W 100ml IV SCH (03:00)
[2023-04-10] MEDS: GLUCERNA 1.2 1,000 ML BOTTLE NG PRN ×2 (03:19→18:31)
[2023-04-10 04:26] LABS: BASOPHILS # (AUTO) 0.1 K/uL (0.0-0.2); BASOPHILS % (AUTO) 0.7 % (0.0-2.0); EOSINOPHILS # (AUTO) 0.1 K/uL (0.0-0.7); EOSINOPHILS % (AUTO) 0.8 % (0.0-6.0); HEMATOCRIT 31 % (39-51); HEMOGLOBIN 10.3 g/dL (13.5-17.5); LYMPHOCYTES # (AUTO) 1.3 K/uL (0.8-4.8); LYMPHOCYTES % (AUTO) 9.1 % (20.0-44.0); MEAN CORPUSCULAR HEMOGLOBIN 29 PG (26.0-33.0); MEAN CORPUSCULAR HGB CONC 33 g/dl (31.0-36.0); MEAN CORPUSCULAR VOLUME 90 fL (80-96); MONOCYTES % (AUTO) 6.5 % (2.0-12.0); NEUTROPHILS # (AUTO) 12.2 K/uL (1.8-8.9); NEUTROPHILS % (AUTO) 82.9 % (43.0-81.0); PLATELET COUNT (AUTO) 392 K/uL (150-450); RED BLOOD CELL COUNT(AUTO) 3.49 MIL/uL (4.5-6.0); RED CELL DISTRIBUTION WIDTH 13.2 % (11.5-15.0); WHITE BLOOD COUNT (AUTO) 14.7 K/uL (4.3-11.0)
[2023-04-10] MEDS: MEROPENEM 1 G in IV NS 0.9% 100 ML IV SCH ×3 (04:30→20:37)
[2023-04-10 04:41] LABS: CALCIUM, SERUM 10.6 mg/dL (8.5-10.1); CREATININE 1.1 mg/dL (0.6-1.3); MAGNESIUM 2.8 mg/dL (1.8-2.4); PHOSPHORUS 2.4 mg/dL (2.5-4.9)
[2023-04-10 06:45] LABS: BAND % (MANUAL) 1 % (0.0-5.0); EOSINOPHILS % (MANUAL) 1 % (0-4); LYMPHOCYTES % (MANUAL) 7 % (16-48); MONOCYTES % (MANUAL) 5 % (0-11.0); MYELOCYTES % 2 % (0-0); NEUTROPHILS % (MANUAL) 84 (42-76); PLATELET ESTIMATE ADEQUATE
[2023-04-10] MEDS: DOCUSATE SODIUM LIQ 100 MG/10 ML UDC GT SCH ×2 (09:42→16:16)
[2023-04-10] MEDS: buPROPion 100 MG TABLET GT SCH ×2 (09:42→16:16)
[2023-04-10] MEDS: CHOLECALCIFEROL (VITAMIN D 3) 400 UNIT TABLET GT SCH (09:42)
[2023-04-10] MEDS: LACTOBACILLUS RHAMNOSUS GG 1 EACH CAP.SPRINK GT SCH ×2 (09:42→16:16)
[2023-04-10] MEDS: POLYETHYLENE GLYCOL 3350 17 GM POWD.PACK GT SCH (09:42)
[2023-04-10] MEDS: ENOXAPARIN SODIUM 40 MG/0.4 ML DISP.SYRIN SQ SCH (09:43)
[2023-04-10] MEDS: MIDODRINE HCL (5MG) 5 MG TABLET GT SCH ×2 (09:43→16:16)
[2023-04-10] MEDS: MULTIPLE VIT (LYCOPENE/FA/MV,CA,IRON,MIN/LUT)1 TAB GT SCH (09:44)
[2023-04-10] MEDS ORDERED: NEUTRA PHOS 1 POWD.PACKET GT ONE (16:00)
[2023-04-10] MEDS ORDERED: NEUTRA PHOS 1 POWD.PACKET PO ONE (16:00)
[2023-04-10] MEDS: OLANZAPINE 2.5 MG TABLET GT SCH (22:29)
[2023-04-11] VITALS (7 sets, daily range): BP systolic 107–125; BP diastolic 65–74; TEMP 97.7–99.5; O2SAT 95–97
[2023-04-11] MEDS: MEROPENEM 1 G in IV NS 0.9% 100 ML IV SCH ×2 (04:07→16:59)
[2023-04-11 05:59] LABS: CALCIUM, SERUM 10.7 mg/dL (8.5-10.1); CREATININE 1.3 mg/dL (0.6-1.3); PHOSPHORUS 3.1 mg/dL (2.5-4.9)
[2023-04-11 06:00] LABS: BASOPHILS # (AUTO) 0.1 K/uL (0.0-0.2); EOSINOPHILS # (AUTO) 0.1 K/uL (0.0-0.7); EOSINOPHILS % (AUTO) 0.8 % (0.0-6.0); HEMATOCRIT 34 % (39-51); HEMOGLOBIN 11.1 g/dL (13.5-17.5); LYMPHOCYTES % (AUTO) 8.3 % (20.0-44.0); MEAN CORPUSCULAR HEMOGLOBIN 29 PG (26.0-33.0); MEAN CORPUSCULAR HGB CONC 33 g/dl (31.0-36.0); MEAN CORPUSCULAR VOLUME 90 fL (80-96); MONOCYTES # (AUTO) 0.9 K/uL (0.1-1.30); MONOCYTES % (AUTO) 7.9 % (2.0-12.0); NEUTROPHILS # (AUTO) 9.8 K/uL (1.8-8.9); PLATELET COUNT (AUTO) 385 K/uL (150-450); RED BLOOD CELL COUNT(AUTO) 3.79 MIL/uL (4.5-6.0)
[2023-04-11 08:27] LABS: BAND % (MANUAL) 4 % (0.0-5.0); EOSINOPHILS % (MANUAL) 3 % (0-4); LYMPHOCYTES % (MANUAL) 6 % (16-48); MONOCYTES % (MANUAL) 9 % (0-11.0); NEUTROPHILS % (MANUAL) 78 (42-76); PLATELET ESTIMATE ADEQUATE
[2023-04-11] MEDS: MULTIPLE VIT (LYCOPENE/FA/MV,CA,IRON,MIN/LUT)1 TAB GT SCH (09:00)
[2023-04-11] MEDS: DOCUSATE SODIUM LIQ 100 MG/10 ML UDC GT SCH ×2 (09:00→16:47)
[2023-04-11] MEDS: CHOLECALCIFEROL (VITAMIN D 3) 400 UNIT TABLET GT SCH (09:00)
[2023-04-11] MEDS: LACTOBACILLUS RHAMNOSUS GG 1 EACH CAP.SPRINK GT SCH ×2 (09:00→16:48)
[2023-04-11] MEDS: buPROPion 100 MG TABLET GT SCH ×2 (09:01→16:48)
[2023-04-11] MEDS: MIDODRINE HCL (5MG) 5 MG TABLET GT SCH ×2 (09:01→16:47)
[2023-04-11] MEDS: POLYETHYLENE GLYCOL 3350 17 GM POWD.PACK GT SCH (09:01)
[2023-04-11] MEDS: ENOXAPARIN SODIUM 40 MG/0.4 ML DISP.SYRIN SQ SCH (09:03)
[2023-04-11] MEDS: GLUCERNA 1.2 1,000 ML BOTTLE NG PRN ×2 (09:57→23:18)
[2023-04-11] MEDS: IV NS 0.9% 250 ML IV PRN (16:59)
[2023-04-11] MEDS: OLANZAPINE 2.5 MG TABLET GT SCH (21:12)
[2023-04-12] VITALS: BP 115/73; TEMP 97.7; O2SAT 99
[2023-04-12 04:00] VITALS: BP 113/79; TEMP 97.6; O2SAT 98
[2023-04-12] MEDS: MEROPENEM 1 G in IV NS 0.9% 100 ML IV SCH ×2 (04:19→17:00)
[2023-04-12 07:00] LABS: BASOPHILS # (AUTO) 0.1 K/uL (0.0-0.2); BASOPHILS % (AUTO) 0.7 % (0.0-2.0); EOSINOPHILS # (AUTO) 0.1 K/uL (0.0-0.7); EOSINOPHILS % (AUTO) 1.2 % (0.0-6.0); HEMATOCRIT 32 % (39-51); HEMOGLOBIN 10.5 g/dL (13.5-17.5); LYMPHOCYTES # (AUTO) 1.1 K/uL (0.8-4.8); LYMPHOCYTES % (AUTO) 10.4 % (20.0-44.0); MEAN CORPUSCULAR HEMOGLOBIN 30 PG (26.0-33.0); MEAN CORPUSCULAR HGB CONC 33 g/dl (31.0-36.0); MEAN CORPUSCULAR VOLUME 90 fL (80-96); MONOCYTES # (AUTO) 0.8 K/uL (0.1-1.30); MONOCYTES % (AUTO) 7.6 % (2.0-12.0); NEUTROPHILS # (AUTO) 8.7 K/uL (1.8-8.9); NEUTROPHILS % (AUTO) 80.1 % (43.0-81.0); PLATELET COUNT (AUTO) 371 K/uL (150-450); RED BLOOD CELL COUNT(AUTO) 3.52 MIL/uL (4.5-6.0); RED CELL DISTRIBUTION WIDTH 13.2 % (11.5-15.0); WHITE BLOOD COUNT (AUTO) 10.9 K/uL (4.3-11.0)
[2023-04-12 07:35] LABS: ALBUMIN 1.8 g/dL (3.4-5.0); BILIRUBIN,TOTAL 0.2 mg/dL (0.2-1.0); CALCIUM, SERUM 10.8 mg/dL (8.5-10.1); CREATININE 1.3 mg/dL (0.6-1.3); MAGNESIUM 3.4 mg/dL (1.8-2.4); PHOSPHORUS 3.5 mg/dL (2.5-4.9); POTASSIUM 4.4 mmol/L (3.5-5.1); TOTAL PROTEIN, SERUM 7.1 g/dL (6.4-8.2)
[2023-04-12 08:00] VITALS: BP 116/70; TEMP 98.2; O2SAT 99
[2023-04-12] MEDS: POLYETHYLENE GLYCOL 3350 17 GM POWD.PACK GT SCH (09:10)
[2023-04-12] MEDS: DOCUSATE SODIUM LIQ 100 MG/10 ML UDC GT SCH ×2 (09:10→17:02)
[2023-04-12] MEDS: MULTIPLE VIT (LYCOPENE/FA/MV,CA,IRON,MIN/LUT)1 TAB GT SCH (09:11)
[2023-04-12] MEDS: MIDODRINE HCL (5MG) 5 MG TABLET GT SCH ×2 (09:11→17:03)
[2023-04-12] MEDS: buPROPion 100 MG TABLET GT SCH ×2 (09:13→17:03)
[2023-04-12] MEDS: LACTOBACILLUS RHAMNOSUS GG 1 EACH CAP.SPRINK GT SCH ×2 (09:13→17:02)
[2023-04-12] MEDS: CHOLECALCIFEROL (VITAMIN D 3) 400 UNIT TABLET GT SCH (09:13)
[2023-04-12] MEDS: ENOXAPARIN SODIUM 40 MG/0.4 ML DISP.SYRIN SQ SCH (09:14)
[2023-04-12 10:18] LABS: EOSINOPHILS % (MANUAL) 1 % (0-4); LYMPHOCYTES % (MANUAL) 11 % (16-48); MONOCYTES % (MANUAL) 8 % (0-11.0); NEUTROPHILS % (MANUAL) 80 (42-76); PLATELET ESTIMATE ADEQUATE
[2023-04-12 12:00] VITALS: BP 110/65; TEMP 98.2; O2SAT 98
[2023-04-12] MEDS: IV NS 0.9% 1,000 ML IV PRN (15:55)
[2023-04-12] MEDS: GLUCERNA 1.2 1,000 ML BOTTLE NG PRN (15:55)
[2023-04-12 16:00] VITALS: BP 122/69; TEMP 98.2; O2SAT 98
[2023-04-12 20:00] VITALS: BP 122/69; TEMP 98.2; O2SAT 98
[2023-04-12] MEDS: OLANZAPINE 2.5 MG TABLET GT SCH (21:16)
[2023-04-13] VITALS (7 sets, daily range): BP systolic 120–129; BP diastolic 61–73; TEMP 97.9–99; O2SAT 94–98
[2023-04-13] MEDS: GLUCERNA 1.2 1,000 ML BOTTLE NG PRN ×2 (03:15→21:32)
[2023-04-13] MEDS: MEROPENEM 1 G in IV NS 0.9% 100 ML IV SCH ×2 (05:14→17:12)
[2023-04-13 07:18] LABS: BASOPHILS # (AUTO) 0.1 K/uL (0.0-0.2); BASOPHILS % (AUTO) 0.7 % (0.0-2.0); EOSINOPHILS # (AUTO) 0.1 K/uL (0.0-0.7); EOSINOPHILS % (AUTO) 1.1 % (0.0-6.0); HEMATOCRIT 33 % (39-51); HEMOGLOBIN 10.5 g/dL (13.5-17.5); LYMPHOCYTES # (AUTO) 1.2 K/uL (0.8-4.8); LYMPHOCYTES % (AUTO) 10.3 % (20.0-44.0); MEAN CORPUSCULAR HEMOGLOBIN 29 PG (26.0-33.0); MEAN CORPUSCULAR HGB CONC 32 g/dl (31.0-36.0); MEAN CORPUSCULAR VOLUME 91 fL (80-96); MONOCYTES # (AUTO) 0.7 K/uL (0.1-1.30); MONOCYTES % (AUTO) 6.1 % (2.0-12.0); NEUTROPHILS # (AUTO) 9.7 K/uL (1.8-8.9); NEUTROPHILS % (AUTO) 81.8 % (43.0-81.0); PLATELET COUNT (AUTO) 405 K/uL (150-450); RED CELL DISTRIBUTION WIDTH 13.7 % (11.5-15.0); WHITE BLOOD COUNT (AUTO) 11.8 K/uL (4.3-11.0)
[2023-04-13 07:54] LABS: ALBUMIN 1.9 g/dL (3.4-5.0); BILIRUBIN,TOTAL 0.1 mg/dL (0.2-1.0); CALCIUM, SERUM 10.7 mg/dL (8.5-10.1); CREATININE 1.2 mg/dL (0.6-1.3); MAGNESIUM 3.2 mg/dL (1.8-2.4); PHOSPHORUS 3.2 mg/dL (2.5-4.9); POTASSIUM 3.8 mmol/L (3.5-5.1)
[2023-04-13] MEDS: POLYETHYLENE GLYCOL 3350 17 GM POWD.PACK GT SCH (09:04)
[2023-04-13] MEDS: MULTIPLE VIT (LYCOPENE/FA/MV,CA,IRON,MIN/LUT)1 TAB GT SCH (09:05)
[2023-04-13] MEDS: LACTOBACILLUS RHAMNOSUS GG 1 EACH CAP.SPRINK GT SCH ×2 (09:05→17:11)
[2023-04-13] MEDS: buPROPion 100 MG TABLET GT SCH ×2 (09:05→17:10)
[2023-04-13] MEDS: MIDODRINE HCL (5MG) 5 MG TABLET GT SCH ×2 (09:05→17:11)
[2023-04-13] MEDS: DOCUSATE SODIUM LIQ 100 MG/10 ML UDC GT SCH ×2 (09:06→17:10)
[2023-04-13] MEDS: ENOXAPARIN SODIUM 40 MG/0.4 ML DISP.SYRIN SQ SCH (09:09)
[2023-04-13] MEDS: CHOLECALCIFEROL (VITAMIN D 3) 400 UNIT TABLET GT SCH (09:10)
[2023-04-13 12:38] LABS: ANISOCYTOSIS 1+; BAND % (MANUAL) 2 % (0.0-5.0); EOSINOPHILS % (MANUAL) 2 % (0-4); LYMPHOCYTES % (MANUAL) 12 % (16-48); METAMYELOCYTES % 1 % (0-0); MONOCYTES % (MANUAL) 4 % (0-11.0); NEUTROPHILS % (MANUAL) 79 (42-76); PLATELET ESTIMATE ADEQUATE
[2023-04-13] MEDS: IV NS 0.9% 1,000 ML IV PRN (21:10)
[2023-04-13] MEDS: OLANZAPINE 2.5 MG TABLET GT SCH (21:10)
[2023-04-14] VITALS: BP 111/68; TEMP 98.1; O2SAT 98
[2023-04-14 04:00] VITALS: BP 125/60; TEMP 97.6; O2SAT 99
[2023-04-14] MEDS: MEROPENEM 1 G in IV NS 0.9% 100 ML IV SCH ×2 (04:08→16:50)
[2023-04-14 08:00] VITALS: BP 125/71; TEMP 98.7; O2SAT 99
[2023-04-14] MEDS: POLYETHYLENE GLYCOL 3350 17 GM POWD.PACK GT SCH (08:03)
[2023-04-14] MEDS: ENOXAPARIN SODIUM 40 MG/0.4 ML DISP.SYRIN SQ SCH (08:04)
[2023-04-14] MEDS: DOCUSATE SODIUM LIQ 100 MG/10 ML UDC GT SCH ×2 (08:05→16:49)
[2023-04-14] MEDS: buPROPion 100 MG TABLET GT SCH ×2 (08:05→16:49)
[2023-04-14] MEDS: LACTOBACILLUS RHAMNOSUS GG 1 EACH CAP.SPRINK GT SCH ×2 (08:05→16:49)
[2023-04-14] MEDS: MIDODRINE HCL (5MG) 5 MG TABLET GT SCH ×2 (08:06→16:49)
[2023-04-14] MEDS: MULTIPLE VIT (LYCOPENE/FA/MV,CA,IRON,MIN/LUT)1 TAB GT SCH (08:06)
[2023-04-14 12:00] VITALS: BP 133/68; TEMP 98.8; O2SAT 99
[2023-04-14 16:00] VITALS: BP 108/62; TEMP 97.9; O2SAT 99
[2023-04-14] MEDS: IV NS 0.9% 1,000 ML IV PRN (17:34)
[2023-04-14] MEDS: GLUCERNA 1.2 1,000 ML BOTTLE NG PRN (17:35)
[2023-04-14 20:00] VITALS: BP 128/74; TEMP 99; O2SAT 98
[2023-04-14] MEDS: OLANZAPINE 2.5 MG TABLET GT SCH (22:13)
[2023-04-15] VITALS: BP 122/82; TEMP 98.4; O2SAT 95
[2023-04-15 04:00] VITALS: BP 112/78; TEMP 98.1; O2SAT 98
[2023-04-15 04:06] LABS: VIT D, 25-HYDROXY 68.2 ng/mL (30.0-100.0)
[2023-04-15] MEDS: MEROPENEM 1 G in IV NS 0.9% 100 ML IV SCH ×2 (05:04→16:44)
[2023-04-15 05:50] LABS: HEMATOCRIT 32 % (39-51); MEAN CORPUSCULAR HGB CONC 33 g/dl (31.0-36.0); RED CELL DISTRIBUTION WIDTH 13.2 % (11.5-15.0)
[2023-04-15 05:51] LABS: CALCIUM, SERUM 10.7 mg/dL (8.5-10.1); CREATININE 1.1 mg/dL (0.6-1.3); POTASSIUM 3.8 mmol/L (3.5-5.1)
[2023-04-15 05:57] LABS: BASOPHILS # (AUTO) 0.1 K/uL (0.0-0.2); BASOPHILS % (AUTO) 1.3 % (0.0-2.0); EOSINOPHILS # (AUTO) 0.1 K/uL (0.0-0.7); HEMOGLOBIN 10.4 g/dL (13.5-17.5); LYMPHOCYTES # (AUTO) 1.1 K/uL (0.8-4.8); LYMPHOCYTES % (AUTO) 12.3 % (20.0-44.0); MEAN CORPUSCULAR HEMOGLOBIN 30 PG (26.0-33.0); MEAN CORPUSCULAR VOLUME 90 fL (80-96); MONOCYTES # (AUTO) 0.7 K/uL (0.1-1.30); MONOCYTES % (AUTO) 7.4 % (2.0-12.0); NEUTROPHILS # (AUTO) 7.1 K/uL (1.8-8.9); PLATELET COUNT (AUTO) 345 K/uL (150-450); RED BLOOD CELL COUNT(AUTO) 3.54 MIL/uL (4.5-6.0); WHITE BLOOD COUNT (AUTO) 9.1 K/uL (4.3-11.0)
[2023-04-15 07:48] LABS: EOSINOPHILS % (MANUAL) 1 % (0-4); LYMPHOCYTES % (MANUAL) 15 % (16-48); METAMYELOCYTES % 1 % (0-0); MONOCYTES % (MANUAL) 7 % (0-11.0); NEUTROPHILS % (MANUAL) 76 (42-76)
[2023-04-15 07:49] LABS: ANISOCYTOSIS 1+; PLATELET ESTIMATE ADEQUATE
[2023-04-15 08:00] VITALS: BP 112/70; TEMP 98.2; O2SAT 96
[2023-04-15] MEDS: buPROPion 100 MG TABLET GT SCH ×2 (08:52→16:45)
[2023-04-15] MEDS: LACTOBACILLUS RHAMNOSUS GG 1 EACH CAP.SPRINK GT SCH ×2 (08:52→16:44)
[2023-04-15] MEDS: DOCUSATE SODIUM LIQ 100 MG/10 ML UDC GT SCH ×2 (08:52→16:45)
[2023-04-15] MEDS: MULTIPLE VIT (LYCOPENE/FA/MV,CA,IRON,MIN/LUT)1 TAB GT SCH (08:52)
[2023-04-15] MEDS: POLYETHYLENE GLYCOL 3350 17 GM POWD.PACK GT SCH (08:52)
[2023-04-15] MEDS: MIDODRINE HCL (5MG) 5 MG TABLET GT SCH ×2 (08:53→16:45)
[2023-04-15] MEDS: ENOXAPARIN SODIUM 40 MG/0.4 ML DISP.SYRIN SQ SCH (08:56)
[2023-04-15] MEDS: GLUCERNA 1.2 1,000 ML BOTTLE NG PRN (09:47)
[2023-04-15 11:07] LABS: CALCITRIOL VIT D,1, 25 DIHYDRO 29.4 pg/mL (24.8-81.5)
[2023-04-15 12:00] VITALS: BP 109/75; TEMP 98; O2SAT 97
[2023-04-15 16:00] VITALS: BP 116/73; TEMP 97.9; O2SAT 96
[2023-04-15] MEDS: IV D5W 1,000 ML IV PRN (16:48)
[2023-04-15 20:00] VITALS: BP 126/83; TEMP 98.3; O2SAT 97
[2023-04-15] MEDS: OLANZAPINE 10 MG TABLET GT SCH (21:53)
[2023-04-16] VITALS: BP 115/80; TEMP 98.6; O2SAT 96
[2023-04-16] MEDS: IV D5W 1,000 ML IV PRN ×2 (01:14→19:59)
[2023-04-16] MEDS: GLUCERNA 1.2 1,000 ML BOTTLE NG PRN ×2 (01:15→16:58)
[2023-04-16 04:00] VITALS: BP 126/83; TEMP 98.6; O2SAT 96
[2023-04-16] MEDS: MEROPENEM 1 G in IV NS 0.9% 100 ML IV SCH ×2 (04:35→16:09)
[2023-04-16 06:31] LABS: BASOPHILS # (AUTO) 0.1 K/uL (0.0-0.2); BASOPHILS % (AUTO) 1.2 % (0.0-2.0); CALCIUM, SERUM 10.3 mg/dL (8.5-10.1); CREATININE 1.1 mg/dL (0.6-1.3); EOSINOPHILS # (AUTO) 0.1 K/uL (0.0-0.7); EOSINOPHILS % (AUTO) 1.1 % (0.0-6.0); HEMATOCRIT 31 % (39-51); HEMOGLOBIN 10.2 g/dL (13.5-17.5); LYMPHOCYTES # (AUTO) 1.3 K/uL (0.8-4.8); LYMPHOCYTES % (AUTO) 11.9 % (20.0-44.0); MEAN CORPUSCULAR HEMOGLOBIN 30 PG (26.0-33.0); MEAN CORPUSCULAR HGB CONC 33 g/dl (31.0-36.0); MEAN CORPUSCULAR VOLUME 91 fL (80-96); MONOCYTES # (AUTO) 0.8 K/uL (0.1-1.30); MONOCYTES % (AUTO) 7.8 % (2.0-12.0); NEUTROPHILS # (AUTO) 8.2 K/uL (1.8-8.9); PLATELET COUNT (AUTO) 354 K/uL (150-450); POTASSIUM 3.8 mmol/L (3.5-5.1); RED BLOOD CELL COUNT(AUTO) 3.47 MIL/uL (4.5-6.0); RED CELL DISTRIBUTION WIDTH 13.2 % (11.5-15.0); WHITE BLOOD COUNT (AUTO) 10.6 K/uL (4.3-11.0)
[2023-04-16 08:00] VITALS: BP 115/68; TEMP 97.7; O2SAT 99
[2023-04-16] MEDS: POLYETHYLENE GLYCOL 3350 17 GM POWD.PACK GT SCH (08:32)
[2023-04-16] MEDS: LACTOBACILLUS RHAMNOSUS GG 1 EACH CAP.SPRINK GT SCH ×2 (08:32→16:07)
[2023-04-16] MEDS: MULTIPLE VIT (LYCOPENE/FA/MV,CA,IRON,MIN/LUT)1 TAB GT SCH (08:32)
[2023-04-16] MEDS: buPROPion 100 MG TABLET GT SCH ×2 (08:33→16:08)
[2023-04-16] MEDS: DOCUSATE SODIUM LIQ 100 MG/10 ML UDC GT SCH ×2 (08:33→16:07)
[2023-04-16] MEDS: MIDODRINE HCL (5MG) 5 MG TABLET GT SCH ×2 (08:33→16:08)
[2023-04-16] MEDS: ENOXAPARIN SODIUM 40 MG/0.4 ML DISP.SYRIN SQ SCH (08:34)
[2023-04-16 15:51] VITALS: BP 115/68; TEMP 97.7; O2SAT 99
[2023-04-16 16:00] VITALS: BP 122/76; TEMP 98.1; O2SAT 97
[2023-04-16 20:00] VITALS: BP 122/78; TEMP 97.4; O2SAT 97
[2023-04-16] MEDS: OLANZAPINE 10 MG TABLET GT SCH (21:43)
[2023-04-17] VITALS: BP 102/59; TEMP 97.7; O2SAT 96
[2023-04-17 04:00] VITALS: BP 115/70; TEMP 98.1; O2SAT 98
[2023-04-17] MEDS: IV D5W 1,000 ML IV PRN (04:25)
[2023-04-17 06:48] LABS: ALBUMIN 1.8 g/dL (3.4-5.0); BILIRUBIN,TOTAL 0.2 mg/dL (0.2-1.0); CALCIUM, SERUM 10.1 mg/dL (8.5-10.1); CREATININE 1.1 mg/dL (0.6-1.3); PHOSPHORUS 2.9 mg/dL (2.5-4.9); POTASSIUM 3.9 mmol/L (3.5-5.1); TOTAL PROTEIN, SERUM 6.1 g/dL (6.4-8.2)
[2023-04-17 06:50] LABS: BASOPHILS # (AUTO) 0.1 K/uL (0.0-0.2); BASOPHILS % (AUTO) 1.7 % (0.0-2.0); EOSINOPHILS # (AUTO) 0.2 K/uL (0.0-0.7); EOSINOPHILS % (AUTO) 2.6 % (0.0-6.0); HEMATOCRIT 30 % (39-51); HEMOGLOBIN 9.9 g/dL (13.5-17.5); LYMPHOCYTES # (AUTO) 1.1 K/uL (0.8-4.8); LYMPHOCYTES % (AUTO) 13.2 % (20.0-44.0); MEAN CORPUSCULAR HEMOGLOBIN 29 PG (26.0-33.0); MEAN CORPUSCULAR HGB CONC 33 g/dl (31.0-36.0); MEAN CORPUSCULAR VOLUME 90 fL (80-96); MONOCYTES # (AUTO) 0.6 K/uL (0.1-1.30); MONOCYTES % (AUTO) 6.7 % (2.0-12.0); NEUTROPHILS # (AUTO) 6.6 K/uL (1.8-8.9); NEUTROPHILS % (AUTO) 75.8 % (43.0-81.0); PLATELET COUNT (AUTO) 311 K/uL (150-450); RED BLOOD CELL COUNT(AUTO) 3.39 MIL/uL (4.5-6.0); RED CELL DISTRIBUTION WIDTH 13.5 % (11.5-15.0); WHITE BLOOD COUNT (AUTO) 8.7 K/uL (4.3-11.0)
[2023-04-17 08:00] VITALS: BP 121/67; TEMP 97.8; O2SAT 98
[2023-04-17] MEDS: POLYETHYLENE GLYCOL 3350 17 GM POWD.PACK GT SCH (08:51)
[2023-04-17] MEDS: ENOXAPARIN SODIUM 40 MG/0.4 ML DISP.SYRIN SQ SCH (08:51)
[2023-04-17] MEDS: LACTOBACILLUS RHAMNOSUS GG 1 EACH CAP.SPRINK GT SCH ×2 (08:51→17:31)
[2023-04-17] MEDS: MULTIPLE VIT (LYCOPENE/FA/MV,CA,IRON,MIN/LUT)1 TAB GT SCH (08:51)
[2023-04-17] MEDS: buPROPion 100 MG TABLET GT SCH ×3 (08:52→17:31)
[2023-04-17] MEDS: DOCUSATE SODIUM LIQ 100 MG/10 ML UDC GT SCH ×2 (08:52→17:31)
[2023-04-17] MEDS: MIDODRINE HCL (5MG) 5 MG TABLET GT SCH ×2 (08:52→17:36)
[2023-04-17] MEDS: OLANZAPINE 10 MG TABLET GT SCH (21:50)
[2023-04-18] MEDS: IV D5W 1,000 ML IV PRN ×2 (04:41→15:45)
[2023-04-18 07:08] LABS: CALCIUM, SERUM 10.2 mg/dL (8.5-10.1)
[2023-04-18] MEDS: GLUCERNA 1.2 1,000 ML BOTTLE NG PRN ×2 (07:44→22:52)
[2023-04-18] MEDS: POLYETHYLENE GLYCOL 3350 17 GM POWD.PACK GT SCH (09:31)
[2023-04-18] MEDS: buPROPion 100 MG TABLET GT SCH ×2 (09:32→17:36)
[2023-04-18] MEDS: LACTOBACILLUS RHAMNOSUS GG 1 EACH CAP.SPRINK GT SCH ×2 (09:32→17:37)
[2023-04-18] MEDS: MULTIPLE VIT (LYCOPENE/FA/MV,CA,IRON,MIN/LUT)1 TAB GT SCH (09:32)
[2023-04-18] MEDS: DOCUSATE SODIUM LIQ 100 MG/10 ML UDC GT SCH ×2 (09:32→17:37)
[2023-04-18] MEDS: MIDODRINE HCL (5MG) 5 MG TABLET GT SCH ×2 (09:33→17:36)
[2023-04-18] MEDS: ENOXAPARIN SODIUM 40 MG/0.4 ML DISP.SYRIN SQ SCH (09:35)
[2023-04-18 20:52] VITALS: BP 103/60; TEMP 97.8; O2SAT 96
[2023-04-18] MEDS: OLANZAPINE 10 MG TABLET GT SCH (21:07)
[2023-04-19] MEDS: IV D5W 1,000 ML IV PRN ×3 (00:41→19:01)
[2023-04-19 07:30] LABS: BASOPHILS # (AUTO) 0.1 K/uL (0.0-0.2); BASOPHILS % (AUTO) 1.1 % (0.0-2.0); EOSINOPHILS # (AUTO) 0.2 K/uL (0.0-0.7); EOSINOPHILS % (AUTO) 2.2 % (0.0-6.0); HEMATOCRIT 31 % (39-51); HEMOGLOBIN 10.3 g/dL (13.5-17.5); LYMPHOCYTES # (AUTO) 1.5 K/uL (0.8-4.8); LYMPHOCYTES % (AUTO) 19.1 % (20.0-44.0); MEAN CORPUSCULAR HEMOGLOBIN 29 PG (26.0-33.0); MEAN CORPUSCULAR HGB CONC 33 g/dl (31.0-36.0); MEAN CORPUSCULAR VOLUME 89 fL (80-96); MONOCYTES # (AUTO) 0.6 K/uL (0.1-1.30); MONOCYTES % (AUTO) 7.7 % (2.0-12.0); NEUTROPHILS # (AUTO) 5.3 K/uL (1.8-8.9); NEUTROPHILS % (AUTO) 69.9 % (43.0-81.0); PLATELET COUNT (AUTO) 320 K/uL (150-450); RED BLOOD CELL COUNT(AUTO) 3.53 MIL/uL (4.5-6.0); RED CELL DISTRIBUTION WIDTH 13.1 % (11.5-15.0); WHITE BLOOD COUNT (AUTO) 7.6 K/uL (4.3-11.0)
[2023-04-19 08:22] LABS: BILIRUBIN,TOTAL 0.2 mg/dL (0.2-1.0); CREATININE 1.1 mg/dL (0.6-1.3); MAGNESIUM 2.6 mg/dL (1.8-2.4); PHOSPHORUS 3.5 mg/dL (2.5-4.9); POTASSIUM 3.9 mmol/L (3.5-5.1); TOTAL PROTEIN, SERUM 6.2 g/dL (6.4-8.2)
[2023-04-19] MEDS: ENOXAPARIN SODIUM 40 MG/0.4 ML DISP.SYRIN SQ SCH (09:23)
[2023-04-19] MEDS: LACTOBACILLUS RHAMNOSUS GG 1 EACH CAP.SPRINK GT SCH ×2 (09:24→16:45)
[2023-04-19] MEDS: DOCUSATE SODIUM LIQ 100 MG/10 ML UDC GT SCH ×2 (09:24→16:44)
[2023-04-19] MEDS: MIDODRINE HCL (5MG) 5 MG TABLET GT SCH ×2 (09:25→16:45)
[2023-04-19] MEDS: buPROPion 100 MG TABLET GT SCH ×2 (09:27→16:44)
[2023-04-19] MEDS: MULTIPLE VIT (LYCOPENE/FA/MV,CA,IRON,MIN/LUT)1 TAB GT SCH (09:31)
[2023-04-19] MEDS: POLYETHYLENE GLYCOL 3350 17 GM POWD.PACK GT SCH (09:31)
[2023-04-19] MEDS: GLUCERNA 1.2 1,000 ML BOTTLE NG PRN (12:43)
[2023-04-19 20:00] VITALS: BP 112/98; TEMP 97.7; O2SAT 99
[2023-04-19] MEDS: OLANZAPINE 10 MG TABLET GT SCH (22:39)
[2023-04-20] MEDS: GLUCERNA 1.2 1,000 ML BOTTLE NG PRN (09:08)
[2023-04-20] MEDS: POLYETHYLENE GLYCOL 3350 17 GM POWD.PACK GT SCH (09:10)
[2023-04-20] MEDS: MIDODRINE HCL (5MG) 5 MG TABLET GT SCH ×2 (09:11→17:05)
[2023-04-20] MEDS: DOCUSATE SODIUM LIQ 100 MG/10 ML UDC GT SCH ×2 (09:11→17:05)
[2023-04-20] MEDS: LACTOBACILLUS RHAMNOSUS GG 1 EACH CAP.SPRINK GT SCH ×2 (09:11→17:05)
[2023-04-20] MEDS: buPROPion 100 MG TABLET GT SCH ×2 (09:11→17:05)
[2023-04-20] MEDS: MULTIPLE VIT (LYCOPENE/FA/MV,CA,IRON,MIN/LUT)1 TAB GT SCH (09:11)
[2023-04-20] MEDS: ENOXAPARIN SODIUM 40 MG/0.4 ML DISP.SYRIN SQ SCH (09:12)
[2023-04-20] MEDS: IV D5W 1,000 ML IV PRN (12:52)
[2023-04-20] MEDS: OLANZAPINE 10 MG TABLET GT SCH (21:36)
[2023-04-21] MEDS: GLUCERNA 1.2 1,000 ML BOTTLE NG PRN (02:07)
[2023-04-21 08:00] VITALS: BP 120/67; TEMP 98.6; O2SAT 98
[2023-04-21 09:00] VITALS: BP 120/67
[2023-04-21] MEDS: MIDODRINE HCL (5MG) 5 MG TABLET GT SCH (09:00)
[2023-04-21] MEDS: POLYETHYLENE GLYCOL 3350 17 GM POWD.PACK GT SCH (09:00)
[2023-04-21] MEDS: DOCUSATE SODIUM LIQ 100 MG/10 ML UDC GT SCH (09:00)
[2023-04-21] MEDS: LACTOBACILLUS RHAMNOSUS GG 1 EACH CAP.SPRINK GT SCH (09:00)
[2023-04-21] MEDS: MULTIPLE VIT (LYCOPENE/FA/MV,CA,IRON,MIN/LUT)1 TAB GT SCH (09:00)
[2023-04-21] MEDS: buPROPion 100 MG TABLET GT SCH (09:01)
[2023-04-21] MEDS: ENOXAPARIN SODIUM 40 MG/0.4 ML DISP.SYRIN SQ SCH (09:01)
[2023-04-21] MEDS: IV D5W 1,000 ML IV PRN (09:12)
== END 2023-04-21 17:00 | DRG 177 ==
LOC: TELE-TD 20:47 → MEDSG1 21:06 → ICUOV 04-07 13:32 → ICU 04-07 16:07 → TELE-TD 04-10 18:17 → TELE1 04-12 10:59 → MEDSG1 04-15 19:12
PROVIDERS: ADMIT Nurse Practitioner Acute Care
PROC: 0DH63UZ Insertion of Feeding Device into Stomach, Percutaneous Approach (ICD-10-PCS; principal; 2023-04-05)
PROC: 05H533Z Insertion of Infusion Device into Right Subclavian Vein, Percutaneous Approach (ICD-10-PCS; 2023-04-05)
PROC: B546ZZA Ultrasonography of Right Subclavian Vein, Guidance (ICD-10-PCS; 2023-04-05)
DX: J69.0 Pneumonitis due to inhalation of food and vomit (principal); J96.01 Acute respiratory failure with hypoxia; F33.3 Major depressive disorder, recurrent, severe with psychotic symptoms; N39.0 Urinary tract infection, site not specified; N17.9 Acute kidney failure, unspecified; R64 Cachexia; F03.93 Unspecified dementia, unspecified severity, with mood disturbance; E87.0 Hyperosmolality and hypernatremia; F03.92 Unspecified dementia, unspecified severity, with psychotic disturbance; F03.94 Unspecified dementia, unspecified severity, with anxiety; J15.9 Unspecified bacterial pneumonia; R62.7 Adult failure to thrive; E86.0 Dehydration; F06.1 Catatonic disorder due to known physiological condition; E83.39 Other disorders of phosphorus metabolism; E83.52 Hypercalcemia; E86.1 Hypovolemia; N28.1 Cyst of kidney, acquired; Z86.16 Personal history of COVID-19; Z86.711 Personal history of pulmonary embolism; R13.10 Dysphagia, unspecified; Z87.891 Personal history of nicotine dependence; Z88.0 Allergy status to penicillin; K59.00 Constipation, unspecified; K29.70 Gastritis, unspecified, without bleeding; Z90.49 Acquired absence of other specified parts of digestive tract; Z20.822 Contact with and (suspected) exposure to COVID-19; I10 Essential (primary) hypertension; R63.0 Anorexia; Z68.20 Body mass index [BMI] 20.0-20.9, adult; F41.9 Anxiety disorder, unspecified; F60.9 Personality disorder, unspecified; D72.829 Elevated white blood cell count, unspecified; I95.9 Hypotension, unspecified; R33.9 Retention of urine, unspecified; T17.990A Other foreign object in respiratory tract, part unspecified in causing asphyxiation, initial encounter; I95.1 Orthostatic hypotension
CPT/HCPCS: 31720; 36410; 36415; 36600; 43246; 71045-TC; 71250-TC; 76770-TC; 80048-TC; 80053-TC; 80076-TC; 80202-TC; 81001; 82040-TC; 82306; 82652; 82803-TC; 83735-TC; 83880; 83970; 84100-TC; 85025-TC; 86803; 87040-TC; 87081-TC; 87086-TC; 87806; 93970-TC; 94799-TC; 97110-TC; 97116-TC; 97530-TC; A4216; A4223; A4623; A4624; A7526; G0378; J0456; J0692; J0696; J1650; J2185; J2250; J2704; J3370; J3490; J7030; J7040; J7042; J7050; J7060; J7070

== ENCOUNTER 2025-05-01 08:31 | Inpatient (IN) | payer MEDICARE, OTHER ==
[~2025-05-01] VITALS: Ht 172.7 cm; Wt 62.1 kg
[2025-05-01 08:00] VITALS: BP 134/75; TEMP 97.9; O2SAT 99
[2025-05-01] MEDS ORDERED: LORAZEPAM 1 MG TABLET PO PRN (09:00)
[2025-05-01] MEDS ORDERED: LORAZEPAM 0.5 MG TABLET PO PRN (09:00)
[2025-05-01] MEDS ORDERED: MAG HYDROX/AL HYDROX/SIMETH 30 ML UDC PO PRN (09:00)
[2025-05-01] MEDS ORDERED: ACETAMINOPHEN 325 MG TABLET PO PRN (09:00)
[2025-05-01] MEDS: MIDODRINE HCL (5MG) 5 MG TABLET PO SCH (09:00)
[2025-05-01] MEDS ORDERED: TEMAZEPAM 7.5 MG CAPSULE PO PRN ×2 (09:00)
[2025-05-01] MEDS ORDERED: FOLI0.8C PO (09:40)
[2025-05-01] MEDS ORDERED: MAGN100T PO (09:40)
[2025-05-01] MEDS ORDERED: VITA1TAB56 PO (09:40)
[2025-05-01] MEDS ORDERED: ASCO500C17 PO (09:40)
[2025-05-01] MEDS ORDERED: LORA-259 PO (09:40)
[2025-05-01] MEDS ORDERED: ROSU10TA2 PO (09:40)
[2025-05-01 10:33] VITALS: BP 118/64
[2025-05-01 16:00] VITALS: BP 101/53; TEMP 98.1; O2SAT 98
[2025-05-01 21:10] VITALS: BP 118/68; TEMP 98.1; O2SAT 98
[2025-05-01] MEDS: QUETIAPINE FUMARATE 25 MG TABLET PO SCH (22:00)
[2025-05-02 08:00] VITALS: BP 115/68; TEMP 97.8; O2SAT 97
[2025-05-02] MEDS: SERTRALINE HCL 50 MG TABLET PO SCH (09:00)
[2025-05-02] MEDS: QUETIAPINE FUMARATE 25 MG TABLET PO SCH (12:30)
[2025-05-02] MEDS: ENSURE ENLIVE CHOC 237 ML CAN PO SCH (15:19)
[2025-05-02 15:52] VITALS: BP 147/76; TEMP 98.1; O2SAT 97
[2025-05-02 20:17] VITALS: BP 134/71; TEMP 98; O2SAT 95
[2025-05-03 08:00] VITALS: BP 119/73; TEMP 98.2; O2SAT 98
[2025-05-03] MEDS: ASCORBIC ACID 500 MG TABLET PO SCH (08:20)
[2025-05-03 16:00] VITALS: BP 118/71; TEMP 98.1; O2SAT 97
[2025-05-03 20:03] VITALS: BP 115/62; TEMP 98.2; O2SAT 99
[2025-05-04 08:00] VITALS: BP 101/54; TEMP 98.6; O2SAT 100
[2025-05-04 16:00] VITALS: BP 101/58; TEMP 97.8; O2SAT 94
[2025-05-04 21:04] VITALS: BP 130/75; TEMP 97.9; O2SAT 97
[2025-05-05 08:00] VITALS: BP 123/57; TEMP 97.7; O2SAT 99
[2025-05-05] MEDS: QUETIAPINE FUMARATE 25 MG TABLET PO SCH ×2 (08:55→21:13)
[2025-05-05 16:00] VITALS: BP 119/60; TEMP 98.4; O2SAT 93
[2025-05-05] MEDS: MAGNESIUM HYDROXIDE 30 ML UDC PO PRN (19:23)
[2025-05-05 20:00] VITALS: BP 108/59; TEMP 98.2; O2SAT 96
[2025-05-05 21:42] VITALS: BP 112/65; TEMP 98; O2SAT 98
[2025-05-06 08:00] VITALS: BP 123/59; TEMP 98; O2SAT 98
[2025-05-06] MEDS: OLANZAPINE 10 MG VIAL IM PRN (09:31)
[2025-05-06 16:00] VITALS: BP 110/78; TEMP 98.1; O2SAT 98
[2025-05-06 23:32] VITALS: BP 119/79; TEMP 98.2; O2SAT 97
[2025-05-07 08:00] VITALS: BP 121/58; TEMP 97.5; O2SAT 98
[2025-05-07 16:00] VITALS: BP 118/74; TEMP 99.1; O2SAT 97
[2025-05-07 22:11] VITALS: BP 120/70; TEMP 98.6; O2SAT 97
[2025-05-08 08:00] VITALS: BP 143/89; TEMP 98.1; O2SAT 98
[2025-05-08 08:07] VITALS: BP 143/89; TEMP 98.1; O2SAT 98
[2025-05-08 16:05] VITALS: BP 120/59; TEMP 98.1; O2SAT 99
[2025-05-08 20:38] VITALS: BP 118/64; TEMP 97.5; O2SAT 96
[2025-05-09 08:00] VITALS: BP 105/70; TEMP 97.6; O2SAT 99
[2025-05-09] MEDS: QUETIAPINE FUMARATE 25 MG TABLET PO SCH ×2 (08:30→21:50)
[2025-05-09] MEDS: OLANZAPINE 10 MG VIAL IM PRN (09:17)
[2025-05-09 16:00] VITALS: BP 116/59; TEMP 97.9; O2SAT 96
[2025-05-09 16:05] VITALS: BP 116/59; TEMP 97.9; O2SAT 99
[2025-05-09 20:00] VITALS: BP 130/68; TEMP 96.8; O2SAT 97
[2025-05-10 08:00] VITALS: BP 104/71; TEMP 97.5; O2SAT 98
[2025-05-10 08:59] VITALS: BP 104/71
== END 2025-05-10 14:10 | disposition home or self-care (01) | DRG 885 ==
LOC: GPS 08:31
PROVIDERS: ADMIT Psychiatry & Neurology Psychiatry; ATTEND Internal Medicine
DX: F32.3 Major depressive disorder, single episode, severe with psychotic features (principal); R45.851 Suicidal ideations; F41.9 Anxiety disorder, unspecified; Z87.891 Personal history of nicotine dependence; M62.81 Muscle weakness (generalized)
CPT/HCPCS: 82962-TC; 92526; 92611; J3490